=== PATIENT | female | born 1935 | race Caucasian/White ===

== ENCOUNTER 2022-04-07 12:34 | Inpatient (IN) | payer MEDICARE, MEDICAID, SELFPAY ==
[2022-04-07] VITALS (7 sets, daily range): BP systolic 81–148; BP diastolic 60–80; PULSE 79–137; RESP 16–23; TEMP 36.6–36.9; O2SAT 95–99; BMI 26.1
--- NOTE | ~2022-04-07 | XR_ITS ---
EXAMINATION: XR CHEST CLINICAL INFORMATION: Chest pain COMPARISON: None TECHNIQUE: 2 views of the chest were obtained. FINDINGS: Coarse interstitial prominence. No focal consolidation or mass. No pleural effusion or pneumothorax. Calcified aortic arch. Normal heart size. Sternal wires and mediastinal vascular clips are present. Surgical sutures left lateral to the aortic arch. Degenerative changes of the shoulders and spine. There is kyphoplasty cement or recurrent disc spacer in the mid thoracic spine. XR/XR chest 2V IMPRESSION: Coarse interstitial prominence, nonspecific. Most commonly this is associated with chronic bronchitis or reactive airways disease. Acute bronchitis or pulmonary edema considered less likely.
--- NOTE | ~2022-04-07 | XR_ITS ---
EXAMINATION: LUMBAR SPINE, SACRUM AND COCCYX CLINICAL INFORMATION: Pain following fall COMPARISON: None TECHNIQUE: Lumbar spine 3 views, sacrum and coccyx 3 views FINDINGS: There is diffuse osteopenia with multilevel degenerative changes, more prominent to the level of L3-L4 with narrowing of disc space, L4-L5 and L5-S1 with narrowing of the disc space and vacuum phenomenon. There is no compression deformities seen. There is dextroscoliosis of lumbar spine. Evaluation of sacrum and coccyx revealed no fractures. Sacroiliac joints are preserved. Soft tissues are normal. XR/XR lumbar spine 2-3V IMPRESSION: Diffuse osteopenia and degenerative changes
--- NOTE | ~2022-04-07 | XR_ITS ---
EXAMINATION: XR ABDOMEN KUB CLINICAL INDICATION: Assess if barium passed from stomach status post upper GI series. COMPARISON: CT scan of the abdomen and pelvis dated 04/07/2022, upper GI series dated 04/09/2022. TECHNIQUE: AP view of the abdomen. XR/XR KUB FINDINGS/IMPRESSION: Persistent contrast is seen within the the hiatal hernia and gastric lumen as well as in the small bowel. Most of the contrasted thousand and the distal ileum and proximal colon to the level of the proximal one third of the transverse colon. No significantly dilated loops of small bowel. Mild gas and stool within the colon distally to the rectum.
--- NOTE | ~2022-04-07 | XR_ITS ---
EXAMINATION: LUMBAR SPINE, SACRUM AND COCCYX CLINICAL INFORMATION: Pain following fall COMPARISON: None TECHNIQUE: Lumbar spine 3 views, sacrum and coccyx 3 views FINDINGS: There is diffuse osteopenia with multilevel degenerative changes, more prominent to the level of L3-L4 with narrowing of disc space, L4-L5 and L5-S1 with narrowing of the disc space and vacuum phenomenon. There is no compression deformities seen. There is dextroscoliosis of lumbar spine. Evaluation of sacrum and coccyx revealed no fractures. Sacroiliac joints are preserved. Soft tissues are normal. XR/XR sacrum coccyx min 2V IMPRESSION: Diffuse osteopenia and degenerative changes
--- NOTE | ~2022-04-07 | CT_ITS ---
EXAMINATION: CT ABDOMEN AND PELVIS WITH CONTRAST CLINICAL INFORMATION: Nausea and abdominal pain COMPARISON: None TECHNIQUE: Multidetector volumetric images were obtained from the superior aspect of the liver through the pubic symphysis following administration 85 mL of Omnipaque 350 intravenous contrast. Sagittal and coronal reformatted images were obtained on the technologist's workstation. Oral contrast: No This CT examination was performed using dose optimization techniques as appropriate, variously including the following: *Automated exposure control *Adjustment of mA and/or kV according to patient size (this includes techniques or standardized protocols for targeted exams where dose is matched to indication/reason for exam; i.e. extremities or head) *Use of iterative reconstruction technique DLP: 471 mGy-cm FINDINGS: LUNG BASES: Moderate sized hiatal hernia is partially visualized. Emphysematous changes are present at the lung bases with tree-in-bud abnormality consistent with airway disease. Atelectasis is seen. Some calcified granulomas are present. LIVER, GALLBLADDER, AND BILIARY TREE: The liver is normal in size, shape, and attenuation. Multiple scattered small hepatic cysts are seen the largest measuring about a centimeter in size (for example 3:13 and 9). There is a hyperenhancing liver mass seen at the tip of the right lobe of the liver measuring 1 cm in size (3:32). This appears to represent a portosystemic shunt (see 6:117) No suspicious solid focal hepatic lesion or biliary ductal dilatation is present. The gallbladder is unremarkable with no evidence of radiopaque gallstones, gallbladder wall thickening, or obvious pericholecystic inflammatory changes. PANCREAS: There is fatty infiltration of the pancreas. SPLEEN: Unremarkable. ADRENAL GLANDS: Unremarkable. KIDNEYS AND URETERS: The kidneys are normal in size, shape, and attenuation. A benign Bosniak class I cyst present in the lower pole of the left kidney with some other smaller cortical hypodensities also statistically cysts. These need no further imaging or follow-up. No solid renal masses. No hydronephrosis, hydroureter, or calculi seen. No perinephric stranding. BLADDER: Unremarkable. GASTROINTESTINAL TRACT: There is an area of circumferential thickening of the gastric antrum. Although this could be due to a contraction or underfilling, malignancy cannot be entirely excluded. Upper endoscopy or an upper GI is recommended for further evaluation. There is colonic diverticulosis without diverticulitis. Small bowel is unremarkable. The appendix is is not visualized. ABDOMINAL WALL: No significant hernia is appreciated. LYMPH NODES: No retroperitoneal lymphadenopathy is seen. VASCULAR: Calcific atherosclerotic changes present in the aorta and iliofemoral vessels without aneurysm. PELVIC VISCERA: Unremarkable. OSSEOUS STRUCTURES: Marked degenerative changes are present in the spine from L3 through S1. CT/CT abdomen pelvis w IV con IMPRESSION: 1. An area of circumferential thickening of the gastric antrum is present. Although this could be due to a contraction or underfilling, malignancy cannot be entirely excluded. Upper endoscopy or upper GI is recommended for further evaluation. 2. Incidental note made of emphysema, hepatic cysts, a portosystemic shunt, fatty infiltration of the pancreas, colonic diverticulosis without diverticulitis and degenerative changes in the spine. Fleischner guidelines were followed.
--- NOTE | ~2022-04-07 | FL_ITS ---
EXAMINATION: XR GI SERIES CLINICAL INFORMATION: Abnormal CT COMPARISON: CT CT 04/07/2022 TECHNIQUE: Multiple fluoroscopic spot images were obtained as the patient swallowed thick and thin barium in semiupright position. Due to pain, the patient was not able to fully cooperate with positioning for the typical images of an upper GI series. FINDINGS: Due to pain, the patient was not able to fully cooperate with positioning. The study was abbreviated. The patient initiated swallowing normally. There is abnormal primary peristalsis with extensive tertiary contractions. Moderate hiatal hernia is present. The visualized gastric mucosa is normal in appearance though evaluation is limited by the single contrast technique. Contrast had not emptied the stomach by the time the study was terminated, limiting evaluation of the gastric antrum and duodenal bulb. FLUOROSCOPY TIME: 1.7 minutes DOSE AREA PRODUCT: 14.080 Gy-cm2 (solorio-centimeter squared) FL/FL upper GI series IMPRESSION: Limited study due to difficulty with patient positioning. The study was abbreviated. Single contrast technique was utilized. Contrast had not exited the stomach to allow for evaluation of the gastric antrum or duodenal bulb when the study was terminated. Abnormal primary esophageal peristalsis with extensive tertiary contractions. Moderate-sized hiatal hernia. Evaluation of the gastric mucosa is limited by single contrast technique but no gross abnormality seen. GIVEN THE LIMITED STUDY, RECOMMEND UPPER ENDOSCOPY FOR FURTHER EVALUATION OR A REPEAT STUDY COULD BE OBTAINED WHEN THE PATIENT'S ACUTE CLINICAL ISSUES HAVE RESOLVED.
--- NOTE | 2022-04-07 13:25 | ECG_ITS ---
Test Reason : CHEST PAIN Blood Pressure : / mmHG Vent. Rate : 127 BPM Atrial Rate : 000 BPM P-R Int : 000 ms QRS Dur : 086 ms QT Int : 314 ms P-R-T Axes : 000 039 225 degrees QTc Int : 456 ms Atrial fibrillation with rapid ventricular response ST & T wave abnormality, consider inferior ischemia ST & T wave abnormality, consider anterolateral ischemia Abnormal ECG No previous ECGs available Referred By: Yadira Nj Electronically Signed By:STEVE ALLISON MD
--- NOTE | 2022-04-07 13:34 | PC.NURSE ---
pt's states that she slide out of her chair and held herself up with jorgito hands, denies hitting head/loc.
[2022-04-07 14:40] LABS: MANUAL DIFF FLAG NO
[2022-04-07 14:43] LABS: Basophils Percent Auto 0.6 % (0-2); Eosinophils Absolute Auto 0.1 X10*3/uL (0.0-0.4); Eosinophils Percent Auto 1.3 % (0-4); Hematocrit 30.7 % (37.0-47.0); Hemoglobin 9.1 g/dl (12.0-16.0); Imm Gran Abs Auto 0.02 X10*3/uL (0.00-0.03); Imm Gran Pct Auto 0.3 % (0.0-0.4); Lymphocytes Percent Auto 14.3 % (20-40); Mean Corpuscular HGB Conc 29.6 g/dl (31.0-35.0); Mean Platelet Volume 9.5 fL (9.4-12.3); Monocytes Absolute Auto 0.5 X10*3/uL (0.1-1.2); Monocytes Percent Auto 6.8 % (2-11); Neutrophils Absolute Auto 5.5 x10*3/uL (2.0-8.3); Neutrophils Percent Auto 76.7 % (45-73); Platelet Count 240 X10*3/uL (160-400); Red Blood Count 3.79 X10*6/uL (4.20-5.50); Red Cell Distribution Width 19.2 % (11.0-16.0); White Blood Count 7.2 X10*3/uL (4.8-10.8)
[2022-04-07] MEDS: Digoxin 0.5 MG/2 ML AMPUL 0.25 MG IVPUSH ×2 (14:43→17:57)
[2022-04-07 14:50] LABS: INTERNATIONAL NORM RATIO 1.2 (0.9-1.1); Prothrombin Time 14.1 SEC (10.0-13.1)
[2022-04-07] MEDS: Calcium Gluconate/NaCl,Iso-Osm 2 GM/100 ML PLAST..BAG IV (14:56)
--- NOTE | 2022-04-07 15:07 | PC.NURSE ---
opal matamoros ([facility], [facility], ) called and was updated.
[2022-04-07 15:10] LABS: Alanine Aminotransferase 9 U/L (0-31); Alkaline Phosphatase 85 U/L (39-117); Anion Gap 18 (12-20); Aspartate Amino Transferase 12 U/L (5-31); B Type Natriuretic Peptide 979 pg/mL (<100); Bilirubin Total 0.4 mg/dL (0.0-1.0); Blood Urea Nitrogen 16 mg/dL (9-16); Calcium 9.4 mg/dL (8.4-10.2); Carbon Dioxide 22 mmol/L (22-29); Chloride 100 mmol/L (96-108); Estimated Glomerular Filt Rate 48; Glucose Random 115 mg/dL (60-115); Magnesium 1.6 mg/dL (1.6-2.6); Potassium 4.4 mmol/L (3.3-5.1); Sodium 136 mmol/L (135-145); Total Protein 6.3 g/dL (6.5-8.0); Troponin-I High Sensitivity 9.1 ng/L (<3.5-17.0)
--- NOTE | 2022-04-07 15:23 | ED.CHESTPAIN ---
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 She also reports that she was in her wheelchair yesterday and she slid out of her wheelchair landing on her coccyx bone and since then she has been having lower back/coccyx pain. She also has nausea and lower abdominal pain she believes she might have some constipation. She denies head injury loss of consciousness. She did receive 18.5 mg of Cardizem by IV push by EMS and given 324 mg of aspirin. The Cardizem did drop the patient's blood pressure. Patient denies any dizziness, headaches, neck pain/stiffness, trouble swallowing or breathing, shortness of breath, dyspnea on exertion, orthopnea, palpitations, paresthesias, dysuria, hematuria, abnormal vaginal discharge, weakness, focal weakness, rashes, lower extremity edema or calf tenderness or any other symptoms complaints or concerns at this time. MD complaint: chest pain Pertinent past history: coronary artery disease and other (See above) Onset (ago): day(s) (2-3 days ) Timing of current episode: constant Onset: other (Patient unsure) Pain location: other (Diffusely) Severity: mild Quality: tightness Relieving factors: nothing Exacerbating factors: nothing Associated symptoms: nausea Treatment prior to arrival: aspirin and other (18.5mg of Cardizem) Risk Factors Coronary artery disease risk factors: hypertension Related Data Allergies Allergy/AdvReac Type Severity Reaction Status Date / Time No Known Allergies Allergy Verified 04/07/22 13:25 Review of Systems Review of Systems: Constitutional : No Weight loss, No Fever, No Chills, No Night Sweats, No Fatigue, No Malaise ENT/Mouth : No Hearing loss, No Ear Pain, No Nasal Congestion, No Sinus Pain, No Hoarseness, No sore throat, No Rhinorrhea, No Swallowing Difficulty Eyes: No Eye Pain, No Swelling, No Redness, No Foreign Body, No Discharge, No Vision Changes Cardiovascular : + Chest Pain, No SOB, No Dyspnea on Exertion, No Orthopnea, No Edema, No Palpitations Respiratory : No Cough, No Sputum, No Wheezing, No Smoke Exposure, No Dyspnea Gastrointestinal : + Nausea, + abdominal pain, No Vomiting, No Diarrhea, No Constipation, No Hematochezia, No Melena Genitourinary : no irregular bleeding, No Dysuria, No Urinary Frequency, No Hematuria, No Urinary Incontinence, No Urgency, No Flank Pain, No Urinary Flow Changes, No Hesitancy Musculoskeletal : + Back pain, +Coccyx bone pain, No additional joint pain, No Myalgias, No Joint Swelling Skin : No Skin Lesions, No rash Neuro : + left arm Numbness sensation, No Weakness, No Loss of Consciousness, No Dizziness, No Headache Psych : No Anxiety/Panic, No Depression, No SI/HI/AH/VH, No Social Issues, Heme/Lymph: No Bruising, No Bleeding,No Lymphadenopathy Endocrine : No Polyuria, No Polydipsia, No Temperature Intolerance Yes all other systems are reviewed and are negative [facility] Past Medical History Attestation statement: The following information was validated with the patient. Source: old records reviewed and nursing notes reviewed Social History Social History Alcohol intake: never Patient Tobacco Use Status: Never used Tobacco Use of substances other than those prescribed or required for medical reasons: No Advance Directives: Yes Advance Directives Information Provided: No Advance Directives on File: No Physical Exam Vital Signs: Vital Signs: Last Vital Signs Temp 98.4 F 04/07/22 18:02 Pulse 137 H 04/07/22 18:02 Resp 17 04/07/22 18:02 BP 132/71 04/07/22 18:02 Pulse Ox 98 04/07/22 18:02 O2 Del Method 04/07/22 18:02 O2 Flow Rate 2 04/07/22 18:02 BMI result Body Mass Index 26.1 vital signs have been reviewed as normal and appeared to be correct. Blood pressure 94/60. Heart rate 104. Respiration rate normal. Temperature normal. Oxygen saturation normal. Appearance: Alert. Oriented X3. No acute distress. Head: Normal external exam. Normocephalic. Atraumatic. Eyes: PERRLA. EOMI. Conjunctiva and sclera normal. Eyelids normal. ENT: Pharynx normal. Uvula midline. Moist mucous membranes. No lesions/ulcerations or masses noted on the tongue. Normal voice. No trismus noted. No drooling noted. No muffled voice noted. Neck: Normal inspection. Neck supple. FROM. No adenopathy. Thyroid Normal. No meningeal signs. CVS: Normal heart rate and rhythm. Heart sound normal. Pulses normal throughout. No murmurs/rales/gallops. Respiratory: No respiratory distress. Painless inspiration. Breath sounds normal. No wheezes/rales/rhonchi noted. Chest nontender. No accessory muscle usage noted or decreased air movement noted. Abdomen: Soft and mild TTp to lower quadrants. Nondistended. No guarding. No rigidity. Bowel sounds normal in all 4 quadrants. No distention noted. No organomegaly noted. No visible injury noted. No rebound tenderness. Negative Rovsing sign. Negative obturator's sign. Negative psoas sign. Negative Benoit sign. Back: No CVA tenderness. Full range of motion noted. Patient mild tenderness palpation to coccyx bone otherwise no mid lumbar tenderness step-offs or deformities noted. No signs of trauma. Patient neuro intact bilaterally and distally on all 4 extremities. Patient's reflexes intact bilaterally and distally on all 4 extremities. No rashes/lesion/induration/fluctuance or signs of infection noted. Skin: Skin warm and dry. Normal skin color. Normal skin turgor. No rashes/lesions/lacerations noted. Extremities: No lower extremity edema. No calf tenderness is noted. Extremities exhibit normal range of motion and nontender. Neuro: Oriented X 3. No motor deficit. No sensory deficit. Reflexes normal. Normal steady gait. No focal neuro deficits noted. CN's II-XII intact bilaterally? Vascular: + radial pulses/+ 2 distal pedal pulses/+2 dorsalis pedis b/l. Normal cap refill. No cyanosis noted to upper extremity nails and lower extremity toes nails. 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 She also reports that she was in her wheelchair yesterday and she slid out of her wheelchair landing on her coccyx bone and since then she has been having lower back/coccyx pain. She also has nausea and lower abdominal pain she believes she might have some constipation. She denies head injury loss of consciousness. She did receive 18.5 mg of Cardizem by IV push by EMS and given 324 mg of aspirin. The Cardizem did drop the patient's blood pressure. Plan: Labs, EKG, chest x-ray, lumbar spine x-ray, scrotal x-ray, CT scan abdomen pelvis IV contrast, COVID swab and re-evaluate. Reevaluation(s) Reevaluation #1: - labs reviewed patient with anemia with an H&H of 9.1/30.7 - troponin 9.1. - BNP 979 - otherwise all other labs are within normal limits. - chest x-ray revealed coarse assisted show prominence, nonspecific. Most commonly this is associated with chronic bronchitis and reactive airway disease. Acute bronchitis or pulmonary edema considered less likely. - EKG is atrial fibrillation with RVR with ventricular rate of [address] abnormalities no acute ischemic change are noted. Unsure if the atrial fibrillation is new or old. - therefore I discussed this case with Dr. Alyx Mariano and due to patient's low blood pressure and tachycardia will give 0.25 mg of digoxin. Provide 2 g of calcium gluconate and re-evaluate. Time: 14:00 Reevaluation #2: - patient's blood pressure has improved after the calcium gluconate and digoxin. - therefore discussing this case with Dr. Gaitan who recommended possible cardioversion if this is new onset AFib although patient is reporting now that she is unsure if this is new onset of AFib and reports that she was recently at [facility] therefore will attempt to get records. - therefore Dr. Gaitan the sub acute care nurse recommended starting the patient on Cardizem 2.5 mg an hour and increase slowly and to give another digoxin dose in a few hours. - still awaiting CT scan abdomen pelvis with IV contrast, repeat troponin will re-evaluate. Time: 16:13 Reevaluation #3: - blood pressure has in improved now 124/66. Therefore will give another dose of digoxin 0.25 mg and re-evaluate. We will plan to admit. - Dr. Valladares to admit at this time he recommended doing a med rec and a TSH level therefore added at this time. Time: 18:01 [facility] - Chest Pain Medical Records Data Attestation: I reviewed the patient's medical records. Lab Data Attestation: I reviewed the patient's lab results. Result diagrams: 04/07/22 14:36 04/07/22 14:36 Labs: Lab Results 04/07/22 04/07/22 04/07/22 Range/Units 14:36 14:36 14:36 WBC 7.2 (4.8-10.8) X10*3/uL RBC 3.79 L (4.20-5.50) X10*6/uL Hgb 9.1 L (12.0-16.0) g/dl Hct 30.7 L (37.0-47.0) % MCV 81.0 (80.0-98.0) fL MCH 24.0 L (27.0-33.0) pg MCHC 29.6 L (31.0-35.0) g/dl RDW 19.2 H (11.0-16.0) % Plt Count 240 (160-400) X10*3/uL MPV 9.5 (9.4-12.3) fL Immature Gran % (Auto) 0.3 (0.0-0.4) % Neut % (Auto) 76.7 H (45-73) % Lymph % (Auto) 14.3 L (20-40) % Lanier % (Auto) 6.8 (2-11) % Eos % (Auto) 1.3 (0-4) % Baso % (Auto) 0.6 (0-2) % Lymph # (Auto) 1.0 L (1.2-4.9) X10*3/uL Lanier # (Auto) 0.5 (0.1-1.2) X10*3/uL Eos # (Auto) 0.1 (0.0-0.4) X10*3/uL Baso # (Auto) 0.0 (0.0-0.2) X10*3/uL Abs Immat Gran (auto) 0.02 (0.00-0.03) X10*3/uL Absolute Neuts (auto) 5.5 (2.0-8.3) x10*3/uL Absolute Nucleated RBC 0.000 (0.0-0.012) X10*3/uL Nucleated RBC % (auto) 0.0 (0.0-0.2) /100WBC PT 14.1 H (10.0-13.1) SEC INR 1.2 H (0.9-1.1) Sodium 136 (135-145) mmol/L Potassium 4.4 (3.3-5.1) mmol/L Chloride 100 (96-108) mmol/L Carbon Dioxide 22 (22-29) mmol/L Anion Gap 18 (12-20) BUN 16 (9-16) mg/dL Creatinine 1.09 (0.5-1.4) mg/dL Estim Creat Clear Calc 32.0 Estimated GFR 48 Random Glucose 115 (60-115) mg/dL Calcium 9.4 (8.4-10.2) mg/dL Magnesium 1.6 (1.6-2.6) mg/dL Total Bilirubin 0.4 (0.0-1.0) mg/dL AST 12 (5-31) U/L ALT 9 (0-31) U/L Alkaline Phosphatase 85 (39-117) U/L Total Creatine Kinase 51 (26-140) U/L Troponin I High Sens (<3.5-17.0) ng/L B-Natriuretic Peptide (<100) pg/mL Total Protein 6.3 L (6.5-8.0) g/dL Albumin 4.0 (3.5-5.0) g/dL COVID-19 ([place]) (Negative) COVID-19 Clin Com 04/07/22 04/07/22 04/07/22 Range/Units 14:36 17:07 17:07 WBC (4.8-10.8) X10*3/uL RBC (4.20-5.50) X10*6/uL Hgb (12.0-16.0) g/dl Hct (37.0-47.0) % MCV (80.0-98.0) fL MCH (27.0-33.0) pg MCHC (31.0-35.0) g/dl RDW (11.0-16.0) % Plt Count (160-400) X10*3/uL MPV (9.4-12.3) fL Immature Gran % (Auto) (0.0-0.4) % Neut % (Auto) (45-73) % Lymph % (Auto) (20-40) % Lanier % (Auto) (2-11) % Eos % (Auto) (0-4) % Baso % (Auto) (0-2) % Lymph # (Auto) (1.2-4.9) X10*3/uL Lanier # (Auto) (0.1-1.2) X10*3/uL Eos # (Auto) (0.0-0.4) X10*3/uL Baso # (Auto) (0.0-0.2) X10*3/uL Abs Immat Gran (auto) (0.00-0.03) X10*3/uL Absolute Neuts (auto) (2.0-8.3) x10*3/uL Absolute Nucleated RBC (0.0-0.012) X10*3/uL Nucleated RBC % (auto) (0.0-0.2) /100WBC PT (10.0-13.1) SEC INR (0.9-1.1) Sodium (135-145) mmol/L Potassium (3.3-5.1) mmol/L Chloride (96-108) mmol/L Carbon Dioxide (22-29) mmol/L Anion Gap (12-20) BUN (9-16) mg/dL Creatinine (0.5-1.4) mg/dL Estim Creat Clear Calc Estimated GFR Random Glucose (60-115) mg/dL Calcium (8.4-10.2) mg/dL Magnesium (1.6-2.6) mg/dL Total Bilirubin (0.0-1.0) mg/dL AST (5-31) U/L ALT (0-31) U/L Alkaline Phosphatase (39-117) U/L Total Creatine Kinase (26-140) U/L Troponin I High Sens 9.1 9.1 (<3.5-17.0) ng/L B-Natriuretic Peptide 979 H (<100) pg/mL Total Protein (6.5-8.0) g/dL Albumin (3.5-5.0) g/dL COVID-19 ([place]) Negative (Negative) COVID-19 Clin Com See Note Imaging Data Chest x-ray: Attestation: I personally reviewed and interpreted this imaging study as follows: Radiologist's impression: FINDINGS: Coarse interstitial prominence. No focal consolidation or mass. No pleural effusion or pneumothorax. Calcified aortic arch. Normal heart size. Sternal wires and mediastinal vascular clips are present. Surgical sutures left lateral to the aortic arch. Degenerative changes of the shoulders and spine. There is kyphoplasty cement or recurrent disc spacer in the mid thoracic spine. XR/XR chest 2V IMPRESSION: Coarse interstitial prominence, nonspecific. Most commonly this is associated with chronic bronchitis or reactive airways disease. Acute bronchitis or pulmonary edema considered less likely. Lumbar/coccyx x-ray: Attestation: I personally reviewed and interpreted this imaging study as follows: Radiologist's impression: FINDINGS: There is diffuse osteopenia with multilevel degenerative changes, more prominent to the level of L3-L4 with narrowing of disc space, L4-L5 and L5-S1 with narrowing of the disc space and vacuum phenomenon. There is no compression deformities seen. There is dextroscoliosis of lumbar spine. Evaluation of sacrum and coccyx revealed no fractures. Sacroiliac joints are preserved. Soft tissues are normal. ? XR/XR lumbar spine 2-3V IMPRESSION: Diffuse osteopenia and degenerative changes? FINDINGS: There is diffuse osteopenia with multilevel degenerative changes, more prominent to the level of L3-L4 with narrowing of disc space, L4-L5 and L5-S1 with narrowing of the disc space and vacuum phenomenon. There is no compression deformities seen. There is dextroscoliosis of lumbar spine. Evaluation of sacrum and coccyx revealed no fractures. Sacroiliac joints are preserved. Soft tissues are normal. ? XR/XR sacrum coccyx min 2V IMPRESSION: Diffuse osteopenia and degenerative changes? ECG Data ECG #1: Attestation: I personally reviewed and interpreted this ECG as follows: ECG interpretation date: 04/07/22 ECG interpretation time: 13:28 Interpretation: EKG is atrial fibrillation with RVR with ventricular rate of [address] abnormalities no acute ischemic change are noted. Unsure if the atrial fibrillation is new or old. Critical Care Time Critical Care Time Critical Care Time: Yes Total Critical Care Time: 60 Attestation: I personally attest to this time spent taking care of the patient Discharge Plan Discharge Clinical Impression: Atrial fibrillation with rapid ventricular response, Anemia, Fall, Acute hypotension, CHF (congestive heart failure), Pain in the coccyx Patient Disposition: Admitted As Inpatient
[2022-04-07] MEDS: iohexoL 350 MG/ML 100 ML INFUS..BTL IV (16:48)
[2022-04-07 17:30] LABS: COVID-19 Test Negative (Negative); IDNOW Serial# 16C4AD1C
[2022-04-07 17:34] LABS: Troponin-I High Sensitivity 9.1 ng/L (<3.5-17.0)
--- NOTE | 2022-04-07 18:01 | PC.NURSE ---
Pt able to void in bed adorno.
[2022-04-07] MEDS: LORazepam 1 MG TABLET PO (18:32)
[2022-04-07 18:58] LABS: TSH reflex Free T4 1.32 uIU/mL (0.32-4.0)
--- NOTE | 2022-04-07 21:03 | PM.IMHP ---
History of Present Illness Date of Service: 04/07/22 Chief Complaint: Chest palpitations This is a 86-year-old female, resident of [facility], with pertinent history of mood disorder, hypothyroidism, essential hypertension, chronic hypoxemic respiratory failure due to COPD, CAD status post bypass, congestive heart failure (unknown ejection fraction) who was brought to the emergency department for evaluation of palpitations and chest tightness. Patient does have multiple complaints at the time of admission. States she has been having palpitations and chest tightness that started on the day of presentation. She was evaluated by a healthcare provider at the [place] [facility] who sent her to the ER. Patient does not know if she has history of atrial arrhythmia. Patient also complains of low back pain since yesterday. She was in her wheelchair when she slid out of her wheelchair and landed on her coccyx bone and it has been hurting since. On review of systems, she complains of epigastric discomfort, nausea and difficulty with passing stools. Does not remember the last time she had a bowel movement. Patient denies fever, chills, vomiting, chest discomfort, changes in urinary habits, breathing difficulty. 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 In the emergency department, patient was given IV digoxin and initiated on diltiazem drip. Review of Systems Review of Systems: All 13 review of systems are negative except as noted in [facility] Medical History CAD (coronary artery disease) CHF (congestive heart failure) Chronic respiratory failure with hypoxia CVA (cerebral vascular accident) GERD (gastroesophageal reflux disease) Hypertension Hypothyroidism Insomnia Mood disorder Surgical History (Updated 04/07/22 @ 21:11 by Maryanne Nath MD) Hx of CABG Social History Alcohol intake: never Patient Tobacco Use Status: Never used Tobacco Use of substances other than those prescribed or required for medical reasons: No Advance Directives: Yes Advance Directives Information Provided: No Advance Directives on File: No Meds Allergies Allergy/AdvReac Type Severity Reaction Status Date / Time No Known Allergies Allergy Verified 04/07/22 13:25 Active Medications: Current Medications Acetaminophen (Acetaminophen 325 Mg Tablet) 650 mg PO Q6H PRN PRN Reason: Pain, Mild (Pain Scale 1-3) Albuterol Sulfate (Albuterol Sulfate 90 Mcg 8 Gm Inhaler) 2 puff INHALE Q6H PRN PRN Reason: Shortness Of Breath Albuterol/Ipratropium (Albuterol/Iprat 2.5/0.5mg 3 Ml Ampul.Neb) 3 ml INHALE Q6H PRN PRN Reason: Shortness Of Breath Apixaban (Apixaban 5 Mg Tablet) 5 mg PO BID [facility] Calcitonin [place] (Calcitonin,[place],Synth Nasal 3.7 Ml Bottle) 1 spray NOSTRILALT DAILY [facility] Diltiazem HCl (Diltiazem Hcl 30 Mg Tablet) 30 mg PO Q6H [facility]; Protocol Escitalopram Oxalate (Escitalopram Oxalate 20 Mg Tablet) 20 mg PO DAILY [facility] Famotidine (Famotidine 20 Mg Tablet) 20 mg PO ONCE ONE Stop: 04/07/22 20:54 Furosemide (Furosemide 20 Mg Tablet) 20 mg PO DAILY [facility]; Protocol Diltiazem HCl 2.5 mg/ Sodium (Chloride) 125 mls @ 0 mls/hr IVCONT .Q0M [facility]; Protocol Last Admin: 04/07/22 17:12 Dose: 2.5 mg/hr, 125 mls/hr Isosorbide Mononitrate (Isosorbide Mononitrate 30 Mg Tab.Er.24h) 30 mg PO DAILY [facility]; Protocol Levothyroxine Sodium (Levothyroxine Sodium 125 Mcg Tablet) 125 mcg PO DAILY [facility] Lorazepam (Lorazepam 0.5 Mg Tablet) 0.5 mg PO BID PRN PRN Reason: anxiety Melatonin (Melatonin 3 Mg Tablet) 6 mg PO BEDTIME PRN PRN Reason: Insomnia Non-Formulary Medication (Fluticasone Propion-Salmeterol [Advair Hfa]) 2 puff INHALE BID [facility] Non-Formulary Medication (Oxycodone [Oxycontin]) 1 tab PO BID [facility] Omeprazole (Omeprazole 40 Mg Capsule.Dr) 40 mg PO DAILY [facility] Ondansetron HCl (Ondansetron Hcl 4 Mg/2 Ml Vial) 4 mg IVPUSH Q8H PRN PRN Reason: Nausea and Vomiting Oxycodone HCl (Oxycodone Hcl Immed Release 5 Mg Tablet) 5 mg PO QID PRN PRN Reason: Pain, Moderate Pantoprazole Sodium (Pantoprazole Sodium 40 Mg/10 Ml Vial) 40 mg IVPUSH DAILY [facility] Pharmacy Consult (Consult Rx Perform Med Rec) 1 each MISCELLANE ONCE STA Stop: 04/07/22 19:36 Senna (Senna [place] Extract Oral Syrup 15 Ml Syrup) 7.5 ml PO BEDTIME [facility] Sodium Chloride (0.9 % Sodium Chloride Flush 3 Ml Syringe) 3 ml IVFLUSH QSHIFT [facility] Trazodone HCl (Trazodone Hcl 100 Mg Tablet) 200 mg PO BEDTIME PRN PRN Reason: Sleep Home Medications Medication Instructions Recorded Confirmed Last Taken Type albuterol sulfate 90 mcg/actuation 2 puff inhalation Q6H PRN 04/07/22 04/07/22 Unknown History aerosol inhaler Shortness Of Breath amlodipine 2.5 mg tablet 1 tab PO DAILY 04/07/22 04/07/22 Unknown History apixaban 5 mg tablet (Eliquis) 5 mg PO BID 04/07/22 04/07/22 Unknown History aspirin 81 mg chewable tablet 81 mg PO DAILY 04/07/22 04/07/22 Unknown History benzonatate 100 mg capsule 100 mg PO TID PRN Cough 04/07/22 04/07/22 Unknown History calcitonin (salmon) 200 1 spray intranasal (ALT) DAILY 04/07/22 04/07/22 Unknown History unit/actuation nasal spray calcium carbonate 600 mg-vitamin 1 tab PO DAILY 04/07/22 04/07/22 Unknown History D3 10 mcg (400 unit) tablet (Calcium 600 + D(3)) carboxymethylcellulose sodium 0.5 1 drp ophthalmic (eye) TID PRN Dry 04/07/22 04/07/22 Unknown History % eye drops (Refresh Tears) Eye(S) cetirizine 5 mg tablet 5 mg PO DAILY 04/07/22 04/07/22 Unknown History diclofenac sodium 1 % topical gel 2 g topical BID 04/07/22 04/07/22 Unknown History escitalopram oxalate 20 mg tablet 20 mg PO DAILY 04/07/22 04/07/22 Unknown History ferrous sulfate 325 mg (65 mg 325 mg PO DAILY 04/07/22 04/07/22 Unknown History iron) tablet fluticasone propionate 230 2 puff inhalation BID 04/07/22 04/07/22 Unknown History mcg-salmeterol 21 mcg/actuation HFA inhaler (Advair HFA) fluticasone propionate 50 1 spray intranasal DAILY PRN 04/07/22 04/07/22 Unknown History mcg/actuation nasal Allergy Symptoms spray,suspension furosemide 20 mg tablet 1 tab PO DAILY 04/07/22 04/07/22 Unknown History guaifenesin 100 mg/5 mL oral liquid 200 mg PO Q4H PRN Cough 04/07/22 04/07/22 Unknown History ipratropium 0.5 mg-albuterol 3 mg 3 ml inhalation Q6H PRN Shortness 04/07/22 04/07/22 Unknown History (2.5 mg base)/3 mL nebulization Of Breath soln isosorbide mononitrate 30 mg 30 mg PO DAILY 04/07/22 04/07/22 Unknown History tablet,extended release 24 hr ketorolac 0.4 % eye drops 1 drp ophthalmic (eye) TID PRN 04/07/22 04/07/22 Unknown History Allergy Symptoms levothyroxine 125 mcg tablet 1 tab PO DAILY 04/07/22 04/07/22 Unknown History lidocaine 4 % topical patch 1 patch topical DAILY PRN Pain 04/07/22 04/07/22 Unknown History lorazepam 0.5 mg tablet 1 tab PO DAILY PRN anxiety 04/07/22 04/07/22 Unknown History metoprolol succinate 25 mg 75 mg PO DAILY 04/07/22 04/07/22 Unknown History tablet,extended release 24 hr omeprazole 40 mg capsule,delayed 1 cap PO DAILY 04/07/22 04/07/22 Unknown History release ondansetron 4 mg disintegrating 4 mg PO Q8H PRN Nausea And Vomiting 04/07/22 04/07/22 Unknown History tablet oxycodone 15 mg tablet,crush 15 mg PO BEDTIME 04/07/22 04/07/22 Unknown History resistant,extended release 12 hr (OxyContin) oxycodone 5 mg tablet 1 tab PO QID PRN Pain, Moderate 04/07/22 04/07/22 Unknown History sennosides 8.6 mg tablet (senna) 17.2 mg PO BID 04/07/22 04/07/22 Unknown History trazodone 100 mg tablet 2 tab PO BEDTIME PRN Sleep 04/07/22 04/07/22 Unknown History Physical Exam Vital Signs and Narrative: Vital Signs: Last Vital Signs Temp 98.4 F 04/07/22 18:02 Pulse 137 H 04/07/22 18:02 Resp 17 04/07/22 18:02 BP 132/71 04/07/22 18:02 Pulse Ox 98 04/07/22 18:02 O2 Del Method 04/07/22 18:02 O2 Flow Rate 2 04/07/22 18:02 BMI result Body Mass Index 26.1 Elderly female lying in bed in no distress Neck supple, no JVD Irregularly irregular, S1-S2 heard Decreased breath sound at bases Abdomen soft nontender, no guarding, no rigidity Patient is awake, alert and oriented to place, time and person, no focal motor weakness Psych: Normal mood No pedal edema Results Labs CBC and Chem 7: 04/07/22 14:36 04/07/22 14:36 Labs: Laboratory Results - last 24 hr 04/07/22 04/07/22 04/07/22 14:36 14:36 14:36 MCV 81.0 MCH 24.0 L MCHC 29.6 L RDW 19.2 H Plt Count 240 MPV 9.5 Immature Gran % (Auto) 0.3 Neut % (Auto) 76.7 H Lymph % (Auto) 14.3 L [place] % (Auto) 6.8 Eos % (Auto) 1.3 Baso % (Auto) 0.6 Lymph # (Auto) 1.0 L [place] # (Auto) 0.5 Eos # (Auto) 0.1 Baso # (Auto) 0.0 Abs Immat Gran (auto) 0.02 Absolute Neuts (auto) 5.5 Absolute Nucleated RBC 0.000 Nucleated RBC % (auto) 0.0 PT 14.1 H INR 1.2 H Anion Gap 18 Estim Creat Clear Calc 32.0 Estimated GFR 48 Random Glucose 115 Calcium 9.4 Magnesium 1.6 Total Bilirubin 0.4 AST 12 ALT 9 Alkaline Phosphatase 85 Total Creatine Kinase 51 Troponin I High Sens B-Natriuretic Peptide Total Protein 6.3 L Albumin 4.0 TSH 1.32 COVID-19 ([place]) COVID-19 Clin Com 04/07/22 04/07/22 04/07/22 14:36 17:07 17:07 MCV MCH MCHC RDW Plt Count MPV Immature Gran % (Auto) Neut % (Auto) Lymph % (Auto) [place] % (Auto) Eos % (Auto) Baso % (Auto) Lymph # (Auto) [place] # (Auto) Eos # (Auto) Baso # (Auto) Abs Immat Gran (auto) Absolute Neuts (auto) Absolute Nucleated RBC Nucleated RBC % (auto) PT INR Anion Gap Estim Creat Clear Calc Estimated GFR Random Glucose Calcium Magnesium Total Bilirubin AST ALT Alkaline Phosphatase Total Creatine Kinase Troponin I High Sens 9.1 9.1 B-Natriuretic Peptide 979 H Total Protein Albumin TSH COVID-19 ([place]) Negative COVID-19 Clin Com See Note Imaging Radiologist's Impressions: Impressions Chest X-Ray 04/07/22 13:55 IMPRESSION: Coarse interstitial prominence, nonspecific. Most commonly this is associated with chronic bronchitis or reactive airways disease. Acute bronchitis or pulmonary edema considered less likely. Lumbar Spine X-Ray 04/07/22 16:37 IMPRESSION: Diffuse osteopenia and degenerative changes Sacrum and Coccyx X-Ray 04/07/22 16:37 IMPRESSION: Diffuse osteopenia and degenerative changes Abdomen/Pelvis CT 04/07/22 16:52 IMPRESSION: 1. An area of circumferential thickening of the gastric antrum is present. Although this could be due to a contraction or underfilling, malignancy cannot be entirely excluded. Upper endoscopy or upper GI is recommended for further evaluation. 2. Incidental note made of emphysema, hepatic cysts, a portosystemic shunt, fatty infiltration of the pancreas, colonic diverticulosis without diverticulitis and degenerative changes in the spine. Fleischner guidelines were followed. Assessment and Plan (1) Atrial fibrillation with rapid ventricular response: Status: Acute (2) CHF (congestive heart failure): Status: Acute (3) Hypertension: Status: Acute (4) COPD (chronic obstructive pulmonary disease): Status: Acute (5) Chronic respiratory failure with hypoxia: Status: Acute (6) Mood disorder: Status: Acute (7) Hypothyroidism: Status: Acute (8) Insomnia: Status: Acute (9) GERD (gastroesophageal reflux disease): Status: Acute (10) Pain in the coccyx: Status: Acute Plan This is a 86-year-old female, resident of [facility], with pertinent history of mood disorder, hypothyroidism, essential hypertension, chronic hypoxemic respiratory failure due to COPD, CAD status post bypass, congestive heart failure (unknown ejection fraction) who was brought to the emergency department for evaluation of palpitations and chest tightness. #. AFib with RVR -will admit patient to telemetry. Currently on diltiazem IV drip. Initiating p.o. diltiazem. Patient is on Eliquis 5 mg b.i.d. Also obtaining transthoracic echocardiogram and cardiology consult. TSH pending #. Imaging concern for gastric antrum malignancy -patient does have symptoms of nausea, constipation and abdominal discomfort. Initiating IV PPI. Will keep NPO after midnight for possible upper endoscopy. GI consult. #. Congestive heart failure, unknown ejection fraction -currently compensated. BNP elevated, likely baseline as elderly female. On furosemide and isosorbide mononitrate. Obtaining echocardiogram as above #. Essential hypertension -on isosorbide mononitrate, Lasix and initiating diltiazem. Hold amlodipine for now #. Chronic hypoxemic respiratory failure due to COPD -no concern for exacerbation at the time of admission. DuoNebs p.r.n.. Continue home inhalers. On 2 L home oxygen as needed at baseline #. Hypothyroidism -on levothyroxine. TSH pending #. Pain in coccyx -after mechanical fall. Consulting Physical therapy to evaluate and treat. Analgesics p.r.n. #. Mood disorder #. Insomnia -continue home p.o. medications #. Chronic microcytic anemia -obtaining iron panel DVT prophylaxis: Eliquis 5 mg b.i.d. Diet: Cardiac diet. NPO after midnight Full code Patient will require two night minimum hospital stay for management of AFib with a RVR, currently on diltiazem drip. Also needs evaluation for possible gastric antrum mass Quality Stroke Does the patient have a stroke diagnosis?: No VTE Prior VTE?: No VTE Risk Level:: Medical - moderate - high VTE Device Contraindication: Treatment Not Indicated VTE Drug Contraindication: N/A - Med Ordered
--- NOTE | 2022-04-07 21:08 | PHA.MEDREC ---
Pharmacy Consult ? Medication Reconciliation Pharmacy has completed the medication reconciliation. Ángel Ardon at [facility] orders summary report
[2022-04-07 21:25] LABS: Iron 79 mcg/dL (30-160); Percent Iron Saturation 25 % (15-50); Total Iron Binding Capacity 314 mcg/dL (228-428); Unsaturated Iron Binding 235 ug/dL
[2022-04-07] MEDS: Pantoprazole Sodium 40 MG/10 ML VIAL IVPUSH (22:22)
[2022-04-07] MEDS: dilTIAZem HCL 30 MG TABLET PO (22:22)
[2022-04-07] MEDS: Apixaban 5 MG TABLET PO (22:22)
[2022-04-07] MEDS: oxyCODONE HCl Immed Release 5 MG TABLET PO (22:22)
[2022-04-07] MEDS: Famotidine 20 MG TABLET PO (22:22)
[2022-04-07] MEDS: traZODone HCL 100 MG TABLET 200 MG PO (22:24)
[2022-04-08] VITALS (8 sets, daily range): BP systolic 116–139; BP diastolic 49–72; PULSE 68–86; RESP 15–18; TEMP 36.6–36.8; O2SAT 96–99
--- NOTE | 2022-04-08 01:17 | PC.NURSE ---
Pt sleeping in no apparent distress. Breaths are even and unlabored with equal chest rises. RR 15 bpm. On 2L nc. HR 68. Pt on Diltiazem 125mg running at 2.5ml/hr. Will continue to monitor.
[2022-04-08] MEDS: dilTIAZem HCL 30 MG TABLET PO ×3 (05:02→16:25)
[2022-04-08] MEDS: Acetaminophen 325 MG TABLET 650 MG PO ×2 (05:02→11:01)
[2022-04-08] MEDS: Levothyroxine Sodium 125 MCG TABLET PO (06:12)
[2022-04-08 06:30] LABS: MANUAL DIFF FLAG NO
[2022-04-08 06:32] LABS: Basophils Absolute Auto 0.1 X10*3/uL (0.0-0.2); Basophils Percent Auto 0.8 % (0-2); Eosinophils Absolute Auto 0.2 X10*3/uL (0.0-0.4); Eosinophils Percent Auto 3.9 % (0-4); Hematocrit 31.3 % (37.0-47.0); Hemoglobin 9.3 g/dl (12.0-16.0); Imm Gran Abs Auto 0.01 X10*3/uL (0.00-0.03); Imm Gran Pct Auto 0.2 % (0.0-0.4); Lymphocytes Absolute Auto 1.3 X10*3/uL (1.2-4.9); Lymphocytes Percent Auto 21.9 % (20-40); Mean Corpuscular HGB Conc 29.7 g/dl (31.0-35.0); Mean Corpuscular Hemoglobin 24.1 pg (27.0-33.0); Mean Corpuscular Volume 81.1 fL (80.0-98.0); Mean Platelet Volume 9.4 fL (9.4-12.3); Monocytes Absolute Auto 0.7 X10*3/uL (0.1-1.2); Monocytes Percent Auto 11.9 % (2-11); Neutrophils Absolute Auto 3.7 x10*3/uL (2.0-8.3); Neutrophils Percent Auto 61.3 % (45-73); Platelet Count 229 X10*3/uL (160-400); Red Blood Count 3.86 X10*6/uL (4.20-5.50); Red Cell Distribution Width 19.2 % (11.0-16.0)
[2022-04-08 06:51] LABS: Anion Gap 15 (12-20); Blood Urea Nitrogen 15 mg/dL (9-16); Calcium 9.6 mg/dL (8.4-10.2); Carbon Dioxide 26 mmol/L (22-29); Chloride 101 mmol/L (96-108); Creatinine Clr Calc Pharmacy 31.1; Estimated Glomerular Filt Rate 46; Glucose Random 105 mg/dL (60-115); Potassium 4.4 mmol/L (3.3-5.1); Sodium 138 mmol/L (135-145)
--- NOTE | 2022-04-08 07:00 | CA_ITS ---
Transthoracic Echocardiogram Patient (Last, First, Middle): Leonela Pelaez, Gender: Female Date of : 1935 Age: 86 Procedure Date: 04/08/2022 Procedure Type: Transthoracic Echocardiogram Location: ER Height: 154.94 cm Weight: 62.6 kg BSA: 1.61 m2 Heart Rate: bpm BP: 116 / 49 mmHg Trench Pipe Layer Helper: Referring MD: Maryanne Nath MD Compressor Assembler: Skip Gaitan MD Symptoms: afib Study Quality: Fair ECG Rhythm: Atrial Fibrillation Conclusions: - 1. Normal LV systolic function with mild LVH with restrictive filling pattern 2. Mildly dilated left atrium 3. Cardiac valvular Doppler within normal limits 4. Normal RV systolic pressure 5. No gross pericardial effusion Findings Left Ventricle Normal left ventricular size and systolic function. There is mildly increased left ventricular wall thickness. The visually estimated ejection fraction is between 60-65%. Spectral Doppler is indicative of a restrictive filling pattern. Right Ventricle Normal right ventricular cavity size and systolic function. Atria The left atrium is mildly dilated. There is lipomatous hypertrophy of the interatrial septum. There is no evidence of interatrial shunt. The right atrium is likely dilated. Aortic Valve Normal aortic valve structure and function. There is no aortic valve stenosis. There is no aortic valve regurgitation. Mitral Valve Normal mitral valve structure and function. There is trace mitral valve regurgitation. There is no mitral valve stenosis. Pulmonic Valve The pulmonic valve was not well visualized. Tricuspid Valve Normal tricuspid valve structure. There is mild tricuspid valve regurgitation. The right ventricular systolic pressure is normal. The right ventricular systolic pressure is 26 mmHg. Normal right atrial pressure. There is no evidence of pulmonary hypertension. Great Vessels All visible segments of the aorta are normal in size. The pulmonary artery was not well visualized. Moderate plaque is seen in the ascending aorta. Venous The inferior vena cava is normal in size and collapses greater than 50% with inspiration. Pericardium/Pleural There is no evidence of pericardial effusion. Prior Study Comparison No prior study available for comparison. Measurements 2D Linear Measurements IVSd: 1.12 0.6-0.9/0.6-1.0 cm LVIDd: 3.84 3.9-5.3/4.2-5.9 cm LVIDd Index: 2.39 2.4-3.2/2.2-3.1 cm/m2 LVIDs: 2.61 2.0-3.6 cm LVPWd: 1.08 0.7-1.1 cm Ao Root: 2.90 2.1-3.5 cm LA Diam: 3.90 2.7-3.8/3.0-4.0 cm LAIDs Index: 2.42 1.5-2.3 cm/m2 LV Mass: 170.27 67-162/88-224 g LV Mass Index: 105.76 43-95/49-115 g/m2 LVOT Diam: 1.90 3.0+(-)1.3 cm Mitral Valve MV Pk E: 1.23 MV Decel Time: 127.00 E'Lateral: 7.94 E'Medial: 6.74 E/E' Med: 18.20 E/E' Lat: 15.50 PHT: 37.00 MVA PHT: 5.95 Decel Tripp: 9.63 Aortic Valve AoV Pk Pedro: 1.29 AoV Mn Pedro: 0.86 AoV VTI: 0.34 AoV Pk Grad: 7.00 Aov Mn Grad: 4.00 LISSETTE Cont.VTI: 1.61 LVOT LVOT Pk Pedro: 0.92 LVOT Mn Pedro: 0.54 LVOT VTI: 0.19 LVOT Pk Grad: 3.00 LVOT Mn Grad: 2.00 LVOT Diam: 1.90 LVOT Area: 2.84 Diastolic Function MV Pk E: 1.23 E'Medial: 6.74 E/E' Med: 18.20 E' Laterial: 7.94 E/E' Lat: 15.50 Right Ventricle TAPSE (mm): 18.80 TVS' Pedro: 8.70 Tricuspid Valve TR Pk Pedro: 2.39 TR Pk Grad: 23.00 RA Press: 3.00 RVSP: 26.00 Great Vessels Aorta Ao Root-2D: 2.90 2.0-3.7 cm Ao Asc: 2.90 2.1-3.4 cm Pulmonary Valve PV Pk Pedro: 1.00 Peak PV Grad: 4.00 Updated in Other Vendor System with Status of Final Skip Gaitan MD electronically signed on 04/08/2022 11:40:11 AM with status of Final
[2022-04-08] MEDS: Furosemide 20 MG TABLET PO (09:05)
[2022-04-08] MEDS: Apixaban 5 MG TABLET PO ×2 (09:05→21:37)
[2022-04-08] MEDS: Isosorbide Mononitrate 30 MG TAB.ER.24H PO (09:06)
[2022-04-08] MEDS: Escitalopram Oxalate 20 MG TABLET PO (09:06)
[2022-04-08] MEDS: Pantoprazole Sodium 40 MG/10 ML VIAL IVPUSH (09:07)
--- NOTE | 2022-04-08 09:12 | PC.NURSE ---
DILTIAZEM GTT D/C HR HAS REMAINED UNDER 90 FOR SEVERAL HRS. PO MEDICATIONS GIVEN
--- NOTE | 2022-04-08 09:23 | MHC.CM.PN ---
ANJEL COUGHLINMARCUSJerardo LIVES AT [facility] [place]RETURN REFERRAL SENT. USES A WALKER AND A NEBULIZER. STATES HER SON BOBY IS HER HCP, UNSURE IF HE HAS A COPY. WILL REQUEST HE BRING ONE IN. ROS ROA X 2. PCP DR. IRIZARRY AT THE [facility]. DP: TO RETURN TO [facility] [place], BLS WILL TRANSPORT.
--- NOTE | 2022-04-08 09:24 | PC.NURSE ---
DR MANDEL AT THE BEDSIDE FOR CARDIOLOGY CONSULT
--- NOTE | 2022-04-08 09:26 | PM.CNCAR ---
History of Present Illness History of Present Illness Date of Service: 04/08/22 Requesting physician: Maryanne Nath Consult reason: chest pain and atrial fibrillation Chief complaint: CHEST PRESSURE TO BACK,HR 90-130 FROM SNF PER EMS Narrative: I was consulted to see Leonela in cardiology consultation today for symptoms of chest discomfort and atrial fibrillation. Patient is a poor historian, resident of a nursing home facility with significant past medical history including history of CAD status post coronary artery bypass grafting [facility] and [facility] with cardiac catheterization done 2 years ago at [facility] which had shown severe [place] three-vessel coronary artery disease with occluded graft to the diagonal branch with a patent MARIA ISABEL to RCA as well as PEREZ to LAD. At the time the treatment was decided to be medical. She also has history of atrial fibrillation reported in the past records as paroxysmal atrial fibrillation however she is not very sure about whether she has now persistent atrial fibrillation versus paroxysmal atrial fibrillation. She has history of hypertension, CVA, chronic respiratory failure on chronic oxygen therapy for COPD, history of congestive heart failure she is on diuretic regimen. She is residing at nursing home facility is active but says over the last few years activity levels have declined and she is requiring oxygen now. She is at the nursing home facility as she could not take care of herself at home. She is developing some gradual weakness in the lower extremities. However she ambulates there. Two days ago she says she was not feeling well, not able to better describe this says she was feeling anxious and then subsequently started noticing increased shortness of breath and chest pressure. She was therefore referred to the emergency room from nursing home facility yesterday. She was noted to have atrial fibrillation rapid ventricular response yesterday and EMS had given her 18.75 mg of Cardizem IV push. She subsequently developed hypotension with systolic blood pressure in the 80s. There was therefore concern about her overall condition. However subsequently after giving her IV fluids and calcium gluconate her blood pressure improved. She was given couple of dose of did yesterday was started on low-dose Cardizem drip at 2.5 mg an hour. Since then her rate has remained controlled. She is currently chest pain-free. Her troponins are flat and normal at 9.1. Her BNP was noted at 979 without any obvious signs of heart failure. EKG showed yesterday atrial fibrillation with diffuse ST T wave depression which could represent myocardial ischemia or hypertensive changes. Currently she denies any symptoms. A blood pressure is systolic 119 with heart rate in the 60s and 70s in atrial fibrillation with controlled rate Review of Systems Constitutional: Constitutional: Reports no additional constitutional complaints Eyes: Eyes: Reports no additional eye complaints Cardiovascular: Cardiovascular: Reports chest pain, Denies syncope, Denies lightheadedness, Denies Loss of Consciousness, Reports palpitations and Reports dyspnea on exertion Respiratory: Respiratory: Reports no additional respiratory complaints and Reports dyspnea on exertion Gastrointestinal: Gastrointestinal: Reports no additional gastrointestinal complaints Genitourinary: Genitourinary: Reports no additional female genitourinary complaints Musculoskeletal: Musculoskeletal: Reports no additional musculoskeletal complaints Integumentary/Breasts: Skin/Breast: Reports system reviewed and no additional complaints, except as docu Neurologic: Reports system reviewed and no additional complaints, except as documented and Denies syncope Psychiatric: Psychiatric: Reports no additional psychiatric complaints Endocrine: Endocrine: Reports no additional endocrine complaints and Reports palpitations Hematologic/Lymphatic: Hematologic/Lymphatic: Reports no additional hematologic/lymphatic complaints [facility] Past Medical History Medical History CAD (coronary artery disease) CHF (congestive heart failure) Chronic respiratory failure with hypoxia CVA (cerebral vascular accident) GERD (gastroesophageal reflux disease) Hypertension Hypothyroidism Insomnia Mood disorder Surgical History Surgical History Hx of CABG Social History Social History Alcohol intake: never Patient Tobacco Use Status: Never used Tobacco Use of substances other than those prescribed or required for medical reasons: No Advance Directives: Yes Advance Directives Information Provided: No Advance Directives on File: No service: No Current occupational status: retired Meds Allergies Allergy/AdvReac Type Severity Reaction Status Date / Time No Known Allergies Allergy Verified 04/07/22 13:25 Active Medications: Current Medications Acetaminophen (Acetaminophen 325 Mg Tablet) 650 mg PO Q6H PRN PRN Reason: Pain, Mild (Pain Scale 1-3) Last Admin: 04/08/22 05:02 Dose: 650 mg Albuterol Sulfate (Albuterol Sulfate 90 Mcg 8 Gm Inhaler) 2 puff INHALE Q6H PRN PRN Reason: Shortness Of Breath Albuterol/Ipratropium (Albuterol/Iprat 2.5/0.5mg 3 Ml Ampul.Neb) 3 ml INHALE RQ6H PRN PRN Reason: Shortness Of Breath Apixaban (Apixaban 5 Mg Tablet) 5 mg PO BID [facility] Last Admin: 04/08/22 09:05 Dose: 5 mg Calcitonin [place] (Calcitonin,[place],Synth Nasal 3.7 Ml Bottle) 1 spray NOSTRILALT DAILY [facility] Diltiazem HCl (Diltiazem Hcl 30 Mg Tablet) 30 mg PO Q6H [facility]; Protocol Last Admin: 04/08/22 09:06 Dose: 30 mg Escitalopram Oxalate (Escitalopram Oxalate 20 Mg Tablet) 20 mg PO DAILY [facility] Last Admin: 04/08/22 09:06 Dose: 20 mg Fluticasone/Vilanterol (Fluticasone/Vilanterol 200/25 Blst.W.Dev) 1 puff INHALE DAILY [facility] Last Admin: 04/08/22 08:34 Dose: Not Given Furosemide (Furosemide 20 Mg Tablet) 20 mg PO DAILY [facility]; Protocol Last Admin: 04/08/22 09:05 Dose: 20 mg Diltiazem HCl 2.5 mg/ Sodium (Chloride) 125 mls @ 0 mls/hr IVCONT .Q0M [facility]; Protocol Last Titration: 04/08/22 09:10 Dose: Infused Isosorbide Mononitrate (Isosorbide Mononitrate 30 Mg Tab.Er.24h) 30 mg PO DAILY [facility]; Protocol Last Admin: 04/08/22 09:06 Dose: 30 mg Levothyroxine Sodium (Levothyroxine Sodium 125 Mcg Tablet) 125 mcg PO DAILY@0600 [facility] Last Admin: 04/08/22 06:12 Dose: 125 mcg Lorazepam (Lorazepam 0.5 Mg Tablet) 0.5 mg PO BID PRN PRN Reason: anxiety Melatonin (Melatonin 3 Mg Tablet) 6 mg PO BEDTIME PRN PRN Reason: Insomnia Ondansetron HCl (Ondansetron Hcl 4 Mg/2 Ml Vial) 4 mg IVPUSH Q8H PRN PRN Reason: Nausea and Vomiting Oxycodone HCl (Oxycodone Hcl Immed Release 5 Mg Tablet) 5 mg PO QID PRN PRN Reason: Pain, Moderate Last Admin: 04/07/22 22:22 Dose: 5 mg Oxycodone HCl (Oxycodone Hcl Er 10 Mg Tab.Er.12h) 10 mg PO BID PRN PRN Reason: severe pain Pantoprazole Sodium (Pantoprazole Sodium 40 Mg/10 Ml Vial) 40 mg IVPUSH DAILY [facility] Last Admin: 04/08/22 09:07 Dose: 40 mg Senna (Senna [place] Extract Oral Syrup 15 Ml Syrup) 7.5 ml PO BEDTIME [facility] Last Admin: 04/07/22 22:21 Dose: 7.5 ml Sodium Chloride (0.9 % Sodium Chloride Flush 3 Ml Syringe) 3 ml IVFLUSH QSHIFT [facility] Last Admin: 04/08/22 09:07 Dose: Not Given Trazodone HCl (Trazodone Hcl 100 Mg Tablet) 200 mg PO BEDTIME PRN PRN Reason: Sleep Last Admin: 04/07/22 22:24 Dose: 200 mg Home Medications Medication Instructions Recorded Confirmed Last Taken Type albuterol sulfate 90 mcg/actuation 2 puff inhalation Q6H PRN 04/07/22 04/07/22 Unknown History aerosol inhaler Shortness Of Breath amlodipine 2.5 mg tablet 1 tab PO DAILY 04/07/22 04/07/22 Unknown History apixaban 5 mg tablet (Eliquis) 5 mg PO BID 04/07/22 04/07/22 Unknown History aspirin 81 mg chewable tablet 81 mg PO DAILY 04/07/22 04/07/22 Unknown History benzonatate 100 mg capsule 100 mg PO TID PRN Cough 04/07/22 04/07/22 Unknown History calcitonin (salmon) 200 1 spray intranasal (ALT) DAILY 04/07/22 04/07/22 Unknown History unit/actuation nasal spray calcium carbonate 600 mg-vitamin 1 tab PO DAILY 04/07/22 04/07/22 Unknown History D3 10 mcg (400 unit) tablet (Calcium 600 + D(3)) carboxymethylcellulose sodium 0.5 1 drp ophthalmic (eye) TID PRN Dry 04/07/22 04/07/22 Unknown History % eye drops (Refresh Tears) Eye(S) cetirizine 5 mg tablet 5 mg PO DAILY 04/07/22 04/07/22 Unknown History diclofenac sodium 1 % topical gel 2 g topical BID 04/07/22 04/07/22 Unknown History escitalopram oxalate 20 mg tablet 20 mg PO DAILY 04/07/22 04/07/22 Unknown History ferrous sulfate 325 mg (65 mg 325 mg PO DAILY 04/07/22 04/07/22 Unknown History iron) tablet fluticasone propionate 230 2 puff inhalation BID 04/07/22 04/07/22 Unknown History mcg-salmeterol 21 mcg/actuation HFA inhaler (Advair HFA) fluticasone propionate 50 1 spray intranasal DAILY PRN 04/07/22 04/07/22 Unknown History mcg/actuation nasal Allergy Symptoms spray,suspension furosemide 20 mg tablet 1 tab PO DAILY 04/07/22 04/07/22 Unknown History guaifenesin 100 mg/5 mL oral liquid 200 mg PO Q4H PRN Cough 04/07/22 04/07/22 Unknown History ipratropium 0.5 mg-albuterol 3 mg 3 ml inhalation Q6H PRN Shortness 04/07/22 04/07/22 Unknown History (2.5 mg base)/3 mL nebulization Of Breath soln isosorbide mononitrate 30 mg 30 mg PO DAILY 04/07/22 04/07/22 Unknown History tablet,extended release 24 hr ketorolac 0.4 % eye drops 1 drp ophthalmic (eye) TID PRN 04/07/22 04/07/22 Unknown History Allergy Symptoms levothyroxine 125 mcg tablet 1 tab PO DAILY 04/07/22 04/07/22 Unknown History lidocaine 4 % topical patch 1 patch topical DAILY PRN Pain 04/07/22 04/07/22 Unknown History lorazepam 0.5 mg tablet 1 tab PO DAILY PRN anxiety 04/07/22 04/07/22 Unknown History metoprolol succinate 25 mg 75 mg PO DAILY 04/07/22 04/07/22 Unknown History tablet,extended release 24 hr omeprazole 40 mg capsule,delayed 1 cap PO DAILY 04/07/22 04/07/22 Unknown History release ondansetron 4 mg disintegrating 4 mg PO Q8H PRN Nausea And Vomiting 04/07/22 04/07/22 Unknown History tablet oxycodone 15 mg tablet,crush 15 mg PO BEDTIME 04/07/22 04/07/22 Unknown History resistant,extended release 12 hr (OxyContin) oxycodone 5 mg tablet 1 tab PO QID PRN Pain, Moderate 04/07/22 04/07/22 Unknown History sennosides 8.6 mg tablet (senna) 17.2 mg PO BID 04/07/22 04/07/22 Unknown History trazodone 100 mg tablet 2 tab PO BEDTIME PRN Sleep 04/07/22 04/07/22 Unknown History Physical Exam Vital Signs: Vital Signs: Last Vital Signs Temp 98.0 F 04/08/22 07:06 Pulse 70 04/08/22 08:49 Resp 15 04/08/22 07:06 BP 118/59 L 04/08/22 08:49 Pulse Ox 98 04/08/22 08:49 O2 Del Method 04/08/22 07:06 O2 Flow Rate 2 04/08/22 07:06 BMI result Body Mass Index 26.1 Const: General: cooperative, comfortable, no acute distress, alert and awake Nutritional Appearance: average body habitus Orientation/consciousness: patient oriented x3 HEENT: Head: Yes normocephalic and Yes atraumatic Neck: Neck: Yes trachea midline, Yes supple and Yes no JVD Resp: Effort & Inspection: normal respiratory effort Auscultation: clear to auscultation bilaterally Cardio: Jugular venous distension: no JVD Rate: regular rate Rhythm: abnormal rhythm irregularly irregular Heart sounds: S1 normal heart sound present, S2 normal heart sound present, no click, no gallops, no murmurs and no rubs GI: Auscultation: normal bowel sounds Skin: General skin exam: no rashes or lesions noted Neuro: General: patient oriented x3 and no focal motor deficits Extrem: General: Yes no clubbing, cyanosis or edema Psych: Appearance: grossly normal Affect: Anxious affect present Objective Labs and Meds Result diagrams: 04/08/22 05:40 04/08/22 05:40 Lab results: Laboratory Results - last 24 hr 04/07/22 04/07/22 04/07/22 14:36 14:36 14:36 WBC 7.2 RBC 3.79 L Hgb 9.1 L Hct 30.7 L MCV 81.0 MCH 24.0 L MCHC 29.6 L RDW 19.2 H Plt Count 240 MPV 9.5 Immature Gran % (Auto) 0.3 Neut % (Auto) 76.7 H Lymph % (Auto) 14.3 L [place] % (Auto) 6.8 Eos % (Auto) 1.3 Baso % (Auto) 0.6 Lymph # (Auto) 1.0 L [place] # (Auto) 0.5 Eos # (Auto) 0.1 Baso # (Auto) 0.0 Abs Immat Gran (auto) 0.02 Absolute Neuts (auto) 5.5 Absolute Nucleated RBC 0.000 Nucleated RBC % (auto) 0.0 PT 14.1 H INR 1.2 H Sodium 136 Potassium 4.4 Chloride 100 Carbon Dioxide 22 Anion Gap 18 BUN 16 Creatinine 1.09 Estim Creat Clear Calc 32.0 Estimated GFR 48 Random Glucose 115 Calcium 9.4 Magnesium 1.6 Iron 79 TIBC 314 % Saturation 25 Unsat Iron Binding 235 Total Bilirubin 0.4 AST 12 ALT 9 Alkaline Phosphatase 85 Total Creatine Kinase 51 Troponin I High Sens B-Natriuretic Peptide Total Protein 6.3 L Albumin 4.0 TSH 1.32 COVID-19 ([place]) COVID-19 [place] 04/07/22 04/07/22 04/07/22 14:36 17:07 17:07 WBC RBC Hgb Hct MCV MCH MCHC RDW Plt Count MPV Immature Gran % (Auto) Neut % (Auto) Lymph % (Auto) [place] % (Auto) Eos % (Auto) Baso % (Auto) Lymph # (Auto) [place] # (Auto) Eos # (Auto) Baso # (Auto) Abs Immat Gran (auto) Absolute Neuts (auto) Absolute Nucleated RBC Nucleated RBC % (auto) PT INR Sodium Potassium Chloride Carbon Dioxide Anion Gap BUN Creatinine Estim Creat Clear Calc Estimated GFR Random Glucose Calcium Magnesium Iron TIBC % Saturation Unsat Iron Binding Total Bilirubin AST ALT Alkaline Phosphatase Total Creatine Kinase Troponin I High Sens 9.1 9.1 B-Natriuretic Peptide 979 H Total Protein Albumin TSH COVID-19 ([place]) Negative COVID-19 CSDN Com See Note 04/08/22 04/08/22 05:40 05:40 WBC 6.0 RBC 3.86 L Hgb 9.3 L Hct 31.3 L MCV 81.1 MCH 24.1 L MCHC 29.7 L RDW 19.2 H Plt Count 229 MPV 9.4 Immature Gran % (Auto) 0.2 Neut % (Auto) 61.3 Lymph % (Auto) 21.9 [place] % (Auto) 11.9 H Eos % (Auto) 3.9 Baso % (Auto) 0.8 Lymph # (Auto) 1.3 [place] # (Auto) 0.7 Eos # (Auto) 0.2 Baso # (Auto) 0.1 Abs Immat Gran (auto) 0.01 Absolute Neuts (auto) 3.7 Absolute Nucleated RBC 0.000 Nucleated RBC % (auto) 0.0 PT INR Sodium 138 Potassium 4.4 Chloride 101 Carbon Dioxide 26 Anion Gap 15 BUN 15 Creatinine 1.12 Estim Creat Clear Calc 31.1 Estimated GFR 46 Random Glucose 105 Calcium 9.6 Magnesium Iron TIBC % Saturation Unsat Iron Binding Total Bilirubin AST ALT Alkaline Phosphatase Total Creatine Kinase Troponin I High Sens B-Natriuretic Peptide Total Protein Albumin TSH COVID-19 ([place]) COVID-19 Clin Com Imaging Radiologist's impression: Impressions Chest X-Ray 04/07/22 13:55 IMPRESSION: Coarse interstitial prominence, nonspecific. Most commonly this is associated with chronic bronchitis or reactive airways disease. Acute bronchitis or pulmonary edema considered less likely. Lumbar Spine X-Ray 04/07/22 16:37 IMPRESSION: Diffuse osteopenia and degenerative changes Sacrum and Coccyx X-Ray 04/07/22 16:37 IMPRESSION: Diffuse osteopenia and degenerative changes Abdomen/Pelvis CT 04/07/22 16:52 IMPRESSION: 1. An area of circumferential thickening of the gastric antrum is present. Although this could be due to a contraction or underfilling, malignancy cannot be entirely excluded. Upper endoscopy or upper GI is recommended for further evaluation. 2. Incidental note made of emphysema, hepatic cysts, a portosystemic shunt, fatty infiltration of the pancreas, colonic diverticulosis without diverticulitis and degenerative changes in the spine. Fleischner guidelines were followed. Assessment and Plan (1) Angina pectoris: Status: Acute Patient with symptoms suggestive angina with underlying significant coronary artery disease with occluded diagonal graft, induced most likely due to atrial fibrillation with rapid ventricular response with demand, she also has significant LVH on echocardiogram from [facility]. Atrial fibrillation rapid ventricular response most likely due to anxiety. She has no evidence of acute coronary syndrome by flat troponins. I think simple treatment for this would be better rate control. She is not on any rate control medications at home for unclear reasons. She is easily controlled with a low-dose Cardizem drip. Would switch her to p.o. Cardizem 30 mg q.8 hours for rate control. Target rate below 80 beats per minute. Amlodipine will need to be discontinued given that she is going be started on Cardizem therapy. Continue aggressive medical therapy with good blood pressure control. She has been reported as intolerance to statin in the past and has declined other forms of treatment. Remains at high risk for cardiovascular issues although treatment would be medical. Also increase her isosorbide to 60 mg daily. She is already on full oral anticoagulation Eliquis and continue the same. (2) Atrial fibrillation with rapid ventricular response: Status: Acute Persistent atrial fibrillation unclear duration. But with rate control her symptoms are resolved at this point time. Will continue rate control strategy at this point time. Switch to p.o. Cardizem. Discontinue amlodipine therapy. Continue full oral anticoagulation, currently on Eliquis and appropriate does. Elevated BNP most likely related to LVH which is significant along with persistent atrial fibrillation. She is not having any signs or symptoms of heart failure. Continue usual diuretic therapy. Once patient is on p.o. medication well control can be discharged back to her nursing home facility. Procedures Date of Service Date of Service: 04/08/22
--- NOTE | 2022-04-08 12:14 | HO.PM.IMPN ---
Subjective Subjective Date of Service: 04/08/22 Interval History: seen and examined this AM she denies any current chest symptoms. reported that she had burning sensation prior to arrival both in chest and abdomen reports some right sided abdominal pain which is on going, but unclear if it has been evaluated Review of Systems negative except HPI Physical Exam Vital Signs: Vital Signs: Last Vital Signs Temp 98 F 04/08/22 10:54 Pulse 76 04/08/22 10:54 Resp 18 04/08/22 10:54 BP 139/66 04/08/22 10:54 Pulse Ox 96 04/08/22 10:54 O2 Del Method 04/08/22 10:54 O2 Flow Rate 2 04/08/22 10:54 BMI result Body Mass Index 26.1 Const: Other: General - no acute distress, appears comfortable Cardiovascular - IRR Lungs - normal respiratory effort, clear to auscultation bilaterally, no wheezing Abdomen - soft, nontender, no rebound or guarding Extremities - no edema bilaterally Neuro - awake and alert, no focal deficits Objective Data Active Medications Acetaminophen (Acetaminophen 325 Mg Tablet) 650 mg PO Q6H PRN PRN Reason: Pain, Mild (Pain Scale 1-3) Last Admin: 04/08/22 11:01 Dose: 650 mg Documented By: ALVARADO Albuterol Sulfate (Albuterol Sulfate 90 Mcg 8 Gm Inhaler) 2 puff INHALE Q6H PRN PRN Reason: Shortness Of Breath Albuterol/Ipratropium (Albuterol/Iprat 2.5/0.5mg 3 Ml Ampul.Neb) 3 ml INHALE RQ6H PRN PRN Reason: Shortness Of Breath Apixaban (Apixaban 5 Mg Tablet) 5 mg PO BID [facility] Last Admin: 04/08/22 09:05 Dose: 5 mg Documented By: AUGUSTO Calcitonin [place] (Calcitonin,[place],Synth Nasal 3.7 Ml Bottle) 1 spray NOSTRILALT DAILY [facility] Last Admin: 04/08/22 12:03 Dose: Not Given Documented By: ALVARADO Non-Admin Reason: Med Not Available Diltiazem HCl (Diltiazem Hcl 30 Mg Tablet) 30 mg PO Q8H [facility]; Protocol Escitalopram Oxalate (Escitalopram Oxalate 20 Mg Tablet) 20 mg PO DAILY [facility] Last Admin: 04/08/22 09:06 Dose: 20 mg Documented By: AUGUSTO Fluticasone/Vilanterol (Fluticasone/Vilanterol 200/25 Blst.W.Dev) 1 puff INHALE DAILY [facility] Last Admin: 04/08/22 08:34 Dose: Not Given Documented By: HERB Non-Admin Reason: Patient Asleep Furosemide (Furosemide 20 Mg Tablet) 20 mg PO DAILY [facility]; Protocol Last Admin: 04/08/22 09:05 Dose: 20 mg Documented By: AUGUSTO Isosorbide Mononitrate (Isosorbide Mononitrate 60 Mg Tab.Er.24h) 60 mg PO DAILY [facility]; Protocol Levothyroxine Sodium (Levothyroxine Sodium 125 Mcg Tablet) 125 mcg PO DAILY@0600 [facility] Last Admin: 04/08/22 06:12 Dose: 125 mcg Documented By: PACO Lorazepam (Lorazepam 0.5 Mg Tablet) 0.5 mg PO BID PRN PRN Reason: anxiety Melatonin (Melatonin 3 Mg Tablet) 6 mg PO BEDTIME PRN PRN Reason: Insomnia Ondansetron HCl (Ondansetron Hcl 4 Mg/2 Ml Vial) 4 mg IVPUSH Q8H PRN PRN Reason: Nausea and Vomiting Oxycodone HCl (Oxycodone Hcl Immed Release 5 Mg Tablet) 5 mg PO QID PRN PRN Reason: Pain, Moderate Last Admin: 04/07/22 22:22 Dose: 5 mg Documented By: MIGNON Oxycodone HCl (Oxycodone Hcl Er 10 Mg Tab.Er.12h) 10 mg PO BID PRN PRN Reason: severe pain Pantoprazole Sodium (Pantoprazole Sodium 40 Mg/10 Ml Vial) 40 mg IVPUSH DAILY [facility] Last Admin: 04/08/22 09:07 Dose: 40 mg Documented By: AUGUSTO Senna ([place] Extract Oral Syrup 15 Ml Syrup) 7.5 ml PO BEDTIME [facility] Last Admin: 04/07/22 22:21 Dose: 7.5 ml Documented By: MIGNON Sodium Chloride (0.9 % Sodium Chloride Flush 3 Ml Syringe) 3 ml IVFLUSH QSHIFT [facility] Last Admin: 04/08/22 09:07 Dose: Not Given Documented By: AUGUSTO Non-Admin Reason: IV Running Trazodone HCl (Trazodone Hcl 100 Mg Tablet) 200 mg PO BEDTIME PRN PRN Reason: Sleep Last Admin: 04/07/22 22:24 Dose: 200 mg Documented By: MIGNON Labs CBC & Chem 7: 04/08/22 05:40 04/08/22 05:40 Labs: Laboratory Results - last 24 hr 04/07/22 04/07/22 04/07/22 14:36 14:36 14:36 MCV 81.0 MCH 24.0 L MCHC 29.6 L RDW 19.2 H Plt Count 240 MPV 9.5 Immature Gran % (Auto) 0.3 Neut % (Auto) 76.7 H Lymph % (Auto) 14.3 L [place] % (Auto) 6.8 Eos % (Auto) 1.3 Baso % (Auto) 0.6 Lymph # (Auto) 1.0 L [place] # (Auto) 0.5 Eos # (Auto) 0.1 Baso # (Auto) 0.0 Abs Immat Gran (auto) 0.02 Absolute Neuts (auto) 5.5 Absolute Nucleated RBC 0.000 Nucleated RBC % (auto) 0.0 PT 14.1 H INR 1.2 H Anion Gap 18 Estim Creat Clear Calc 32.0 Estimated GFR 48 Random Glucose 115 Calcium 9.4 Magnesium 1.6 Iron 79 TIBC 314 % Saturation 25 Unsat Iron Binding 235 Total Bilirubin 0.4 AST 12 ALT 9 Alkaline Phosphatase 85 Total Creatine Kinase 51 Troponin I High Sens B-Natriuretic Peptide Total Protein 6.3 L Albumin 4.0 TSH 1.32 COVID-19 ([place]) COVID-19 Clin Com 04/07/22 04/07/22 04/07/22 14:36 17:07 17:07 MCV MCH MCHC RDW Plt Count MPV Immature Gran % (Auto) Neut % (Auto) Lymph % (Auto) [place] % (Auto) Eos % (Auto) Baso % (Auto) Lymph # (Auto) [place] # (Auto) Eos # (Auto) Baso # (Auto) Abs Immat Gran (auto) Absolute Neuts (auto) Absolute Nucleated RBC Nucleated RBC % (auto) PT INR Anion Gap Estim Creat Clear Calc Estimated GFR Random Glucose Calcium Magnesium Iron TIBC % Saturation Unsat Iron Binding Total Bilirubin AST ALT Alkaline Phosphatase Total Creatine Kinase Troponin I High Sens 9.1 9.1 B-Natriuretic Peptide 979 H Total Protein Albumin TSH COVID-19 ([place]) Negative COVID-19 Clin Com See Note 04/08/22 04/08/22 05:40 05:40 MCV 81.1 MCH 24.1 L MCHC 29.7 L RDW 19.2 H Plt Count 229 MPV 9.4 Immature Gran % (Auto) 0.2 Neut % (Auto) 61.3 Lymph % (Auto) 21.9 [place] % (Auto) 11.9 H Eos % (Auto) 3.9 Baso % (Auto) 0.8 Lymph # (Auto) 1.3 [place] # (Auto) 0.7 Eos # (Auto) 0.2 Baso # (Auto) 0.1 Abs Immat Gran (auto) 0.01 Absolute Neuts (auto) 3.7 Absolute Nucleated RBC 0.000 Nucleated RBC % (auto) 0.0 PT INR Anion Gap 15 Estim Creat Clear Calc 31.1 Estimated GFR 46 Random Glucose 105 Calcium 9.6 Magnesium Iron TIBC % Saturation Unsat Iron Binding Total Bilirubin AST ALT Alkaline Phosphatase Total Creatine Kinase Troponin I High Sens B-Natriuretic Peptide Total Protein Albumin TSH COVID-19 ([place]) COVID-19 Clin Com Assessment and Plan (1) Hx of CABG: Status: Acute (2) Angina pectoris: Status: Acute Plan This is an 86 yo F who presented to the ED with palpiations and chest tightness. 1. A. Fib with RVR (suspected persistent A. Fib at baseline) on IV cardizem drip, being transitioned to oral cardizem on eliquis, continue the same cardiology input appreciated renato varghese on d/c 2. Possible gastric malignancy noted on CT imaging gastroenterology consult 3. Angina/CAD in the setting of known CAD (see cardiology notes for full details); has underlying CAD s/p CABG and subsequent occluded graft imdur inreased to 60 continue other therapies 4. Chronic HFpEF not in exacerbation continue baseline diuretics 5. Mood continue her baseline meds Full Code DVT pptx, eliquis Reason for continued hospitalization: A. fib with rates uncontrolled by PO meds thus far, transitioned her to oral meds today to see how she tolerates; Furthermore, has abnormal CT imaging and requires GI consult for further eval. Quality Stroke Does the patient have a stroke diagnosis?: No VTE Prior VTE?: No VTE Risk Level:: Medical - moderate - high VTE Device Contraindication: Treatment Not Indicated VTE Drug Contraindication: N/A - Med Ordered
--- NOTE | 2022-04-08 14:22 | PC.NURSE ---
1300 Paged by Tamara Willis ([employer]) about stat urine missing. Paged Dr. Cordoba regarding missed urine and changed order to Routine, will collect once urine is provided.
[2022-04-08 15:30] LABS: Appearance Urine Clear; Color Urine Yellow; Glucose Urine UA Negative (Negative); Leukocyte Esterase Urine Negative (Negative); Nitrite Urine Negative (Negative); PH 6.5 (5.0-9.0); Specific Gravity - Urine <= 1.005 (1.005-1.025); UMIC TRIGGER UACC YES; Urine Blood Trace (Negative); Urine Ketones Negative (Negative); Urine Protein Negative (Neg-Trace)
[2022-04-08 15:35] LABS: Bacteria Urine None Seen (None Seen); Hyaline Casts Urine 0-2 /LPF (0-2); RBC Urine 0-2 /HPF (0-2); Squamous Epithelial Cell Urine 0-2 /HPF (0-2); WBC Urine 0-5 /HPF (0-5)
[2022-04-08] MEDS: 0.9 % Sodium Chloride Flush 3 ML SYRINGE IVFLUSH (16:19)
--- NOTE | 2022-04-08 16:40 | PM.EVENT ---
Event Note Date of Service: 04/08/22 Event Note: GI consult dictated. UGI series ordered for further evaluation of abnl ct.
[2022-04-08] MEDS: LORazepam 0.5 MG TABLET PO (21:37)
[2022-04-08] MEDS: oxyCODONE HCl Immed Release 5 MG TABLET PO (21:37)
[2022-04-09] VITALS (8 sets, daily range): BP systolic 98–131; BP diastolic 55–72; PULSE 68–137; RESP 16–20; TEMP 36.1–37.6; O2SAT 96–99
[2022-04-09] MEDS: dilTIAZem HCL 30 MG TABLET PO ×2 (00:38→06:05)
[2022-04-09] MEDS: 0.9 % Sodium Chloride Flush 3 ML SYRINGE IVFLUSH ×2 (00:39→08:11)
[2022-04-09] MEDS: oxyCODONE HCl ER 10 MG TAB.ER.12H PO ×2 (02:37→11:53)
--- NOTE | 2022-04-09 05:43 | CONS_ITS ---
DATE OF SERVICE: 04/08/2022 REFERRING PHYSICIAN: Dr. Cordoba REASON FOR CONSULTATION: Abnormal CT scan of the stomach. HISTORY OF PRESENT ILLNESS: Patient is a pleasant 86-year-old woman who was admitted yesterday for complaints of palpitations and chest tightness. As part of her evaluation, she underwent CAT scanning of the abdomen and pelvis, which is reviewed. This is interpreted as showing an area of circumferential thickening of the gastric antrum for which further evaluation with endoscopy or an upper GI series was recommended. The patient describes a longstanding history of gastroesophageal reflux disease. She denies a history of peptic ulcer disease. She believes she has had upper endoscopy on an upper GI series in the remote past. She is currently being treated with an intravenous proton pump inhibitor and was reportedly on omeprazole 40 mg daily at home. She does have some complaints of reflux, but denies dysphagia, hematemesis or melena. There is no family history of stomach cancer that she is aware of. PAST MEDICAL HISTORY: 1. Hypertension. 2. COPD. 3. Coronary artery disease with history of CABG. 4. Atrial fibrillation. 5. CVA. 6. Congestive heart failure. 7. Hypothyroidism. 8. Insomnia. 9. Mood disorder. CURRENT MEDICATIONS: Current medication list is reviewed in the chart. ALLERGIES: THERE ARE NONE REPORTED. FAMILY HISTORY: This is reviewed with the patient and is negative for GI malignancy. SOCIAL HISTORY: There is no current tobacco, alcohol, or substance abuse. REVIEW OF SYSTEMS: SKIN: No pruritus. HEENT: Negative. CARDIOPULMONARY: She denies shortness of breath or chest pain. GASTROINTESTINAL: As above. GENITOURINARY: Negative. NEUROPSYCHIATRIC: Negative. PHYSICAL EXAMINATION: GENERAL: Shows a pleasant female, lying comfortably in bed. VITAL SIGNS: Reviewed in the electronic medical record and are stable. SKIN: Anicteric. HEENT: Shows no scleral icterus. NECK: Without lymphadenopathy or thyromegaly. LUNGS: Clear. HEART: Shows an irregular S1, S2. No murmur. ABDOMEN: Soft without focal masses or tenderness. Bowel sounds are present. No organomegaly is noted. EXTREMITIES: Without edema. LABORATORY DATA: Review of her CT scan shows the findings as described above. PLAN: At this time, I have recommended further evaluation with upper GI series. If this is negative, then she will need endoscopic evaluation, but if it does show abnormalities, then I would recommend holding her Eliquis for 3 days prior to endoscopy. Thank you for asking me to see her. I will follow her in the hospital with you. MD ASHWINI Smyth/LISS / [phone]
[2022-04-09] MEDS: Levothyroxine Sodium 125 MCG TABLET PO (06:05)
[2022-04-09] MEDS: Isosorbide Mononitrate 60 MG TAB.ER.24H PO (08:10)
[2022-04-09] MEDS: Apixaban 5 MG TABLET PO ×2 (08:10→19:52)
[2022-04-09] MEDS: oxyCODONE HCl Immed Release 5 MG TABLET PO ×2 (08:10→20:01)
[2022-04-09] MEDS: Escitalopram Oxalate 20 MG TABLET PO (08:10)
[2022-04-09] MEDS: Pantoprazole Sodium 40 MG/10 ML VIAL IVPUSH (08:11)
[2022-04-09] MEDS: Furosemide 20 MG TABLET PO (08:11)
[2022-04-09] MEDS: Fluticasone/Vilanterol 200/25 BLST.W.DEV 1 PUFF INHALE (09:47)
[2022-04-09] MEDS: Calcitonin,Salmon,Synth Nasal 3.7 ML BOTTLE 1 SPRAY NOSTRILALT (10:46)
[2022-04-09] MEDS: Metoprolol Tartrate 25 MG TABLET PO ×2 (11:52→19:52)
[2022-04-09] MEDS: Acetaminophen 325 MG TABLET 650 MG PO (11:57)
[2022-04-09] MEDS: LORazepam 0.5 MG TABLET PO (11:57)
--- NOTE | 2022-04-09 12:55 | P.PNCA_ITS ---
Subjective Subjective Date of Service: 04/09/22 Principal diagnosis: Atrial fibrillation, angina Interval history: Patient says she went down for test today, appears to be upper GI issues. She was anxious. Heart rate is uncontrolled. Remains on control rapid ventricular response. She had developed some chest discomfort while she was having the test done. Review of Systems Constitutional: Reports no additional constitutional complaints Cardiovascular: Reports chest pain Respiratory: Reports no additional respiratory complaints Gastrointestinal: Reports no additional gastrointestinal complaints Psychiatric: Reports anxiety Physical Exam Vital Signs: Last Vital Signs Temp 97.0 F 04/09/22 11:30 Pulse 137 H 04/09/22 11:30 Resp 20 04/09/22 11:30 BP 123/72 04/09/22 11:30 Pulse Ox 98 04/09/22 11:30 O2 Del Method 04/09/22 11:30 O2 Flow Rate 2 04/09/22 11:30 BMI result Body Mass Index 26.1 Const General: cooperative, comfortable, no acute distress, alert and awake Nutritional Appearance: average body habitus Orientation/consciousness: patient oriented x3 HEENT Head: Yes normocephalic and Yes atraumatic Neck Neck: Yes trachea midline, Yes supple and Yes no JVD Resp Effort & Inspection: normal respiratory effort Auscultation: clear to auscultation bilaterally Cardio Jugular venous distension: no JVD Rate: regular rate Rhythm: abnormal rhythm irregularly irregular Heart sounds: S1 normal heart sound present, S2 normal heart sound present, no click, no gallops, no murmurs and no rubs GI Auscultation: normal bowel sounds Skin General skin exam: no rashes or lesions noted Neuro General: patient oriented x3 and no focal motor deficits Extrem General: Yes no clubbing, cyanosis or edema Psych Appearance: grossly normal Affect: Anxious affect present Objective Labs and Meds Result diagrams: 04/08/22 05:40 04/08/22 05:40 Lab results: Laboratory Results - last 24 hr 04/08/22 15:10 Urine Color Yellow Urine Appearance Clear Urine pH 6.5 Ur Specific [place] <= 1.005 Urine Protein Negative Urine Glucose (UA) Negative Urine Ketones Negative Urine Blood Trace H Urine Nitrite Negative Ur Leukocyte Esterase Negative Urine RBC 0-2 Urine WBC 0-5 Ur Squamous Epith Cells 0-2 Urine Bacteria None Seen Hyaline Casts 0-2 Imaging Radiologist's impression: Impressions Upper GI Series 04/09/22 11:21 IMPRESSION: Limited study due to difficulty with patient positioning. The study was abbreviated. Single contrast technique was utilized. Contrast had not exited the stomach to allow for evaluation of the gastric antrum or duodenal bulb when the study was terminated. Abnormal primary esophageal peristalsis with extensive tertiary contractions. Moderate-sized hiatal hernia. Evaluation of the gastric mucosa is limited by single contrast technique but no gross abnormality seen. GIVEN THE LIMITED STUDY, RECOMMEND UPPER ENDOSCOPY FOR FURTHER EVALUATION OR A REPEAT STUDY COULD BE OBTAINED WHEN THE PATIENT'S ACUTE CLINICAL ISSUES HAVE RESOLVED. Progress Note: A&P Assessment and plan (1) Angina pectoris: Status: Acute Assessment and Plan: Patient redeveloped chest discomfort rapid heart rate. Better rate control needs to be pursued. Continue isosorbide 60 mg daily. Needs to resume IV Cardizem. Control of her anxiety needs to be pursued. Continue other risk factor modification. (2) Atrial fibrillation with rapid ventricular response: Status: Acute Assessment and Plan: Atrial fibrillation controlled ventricular response due to anxiety. At this point time control anxiety. Also resume IV Cardizem at 2.5 mg an hour and furth er up titrate as needed. Switch to p.o. Cardizem once anxiety is better controlled. Currently on full oral anticoagulation with Eliquis. Continue to trend hematocrit which appears to have remained stable. Will follow up Time Spent With Patient Time: Total time spent is greater than 50% in coordination of care (as documented) at patient's floor/unit and/or counseling patient: Progress Note: Quality Stroke Does the patient have a stroke diagnosis?: No Procedures Date of Service Date of Service: 04/09/22
--- NOTE | 2022-04-09 13:41 | P.PNGI_ITS ---
Subjective Subjective Date of Service: 04/09/22 Interval History: tolerating diet no epigastric pain Critical Care Time (minutes): 0 Physical Exam Vital Signs: Vital Signs: Last Vital Signs Temp 97.0 F 04/09/22 11:30 Pulse 137 H 04/09/22 11:30 Resp 20 04/09/22 11:30 BP 123/72 04/09/22 11:30 Pulse Ox 98 04/09/22 11:30 O2 Del Method 04/09/22 11:30 O2 Flow Rate 2 04/09/22 11:30 BMI result Body Mass Index 26.1 GI: Other: abdomen is soft and nontender Objective Data Labs CBC & Chem 7: 04/08/22 05:40 04/08/22 05:40 Labs: Laboratory Results - last 24 hr 04/08/22 15:10 Urine Color Yellow Urine Appearance Clear Urine pH 6.5 Ur Specific [place] <= 1.005 Urine Protein Negative Urine Glucose (UA) Negative Urine Ketones Negative Urine Blood Trace H Urine Nitrite Negative Ur Leukocyte Esterase Negative Urine RBC 0-2 Urine WBC 0-5 Ur Squamous Epith Cells 0-2 Urine Bacteria None Seen Hyaline Casts 0-2 Procedures Date of Service Date of Service: 04/09/22 Progress Note: A&P Assessment and plan (1) Abn findings-GI tract: Status: Acute Assessment and Plan: ugi was a limited exam but shows no significant abnormality I do not recommend EGD at this time. Time Spent With Patient Time: Total time spent is greater than 50% in coordination of care (as documented) at patient's floor/unit and/or counseling patient: Quality Stroke Does the patient have a stroke diagnosis?: No VTE Prior VTE?: No VTE Risk Level:: Medical - moderate - high VTE Device Contraindication: Treatment Not Indicated VTE Drug Contraindication: N/A - Med Ordered
[2022-04-09] MEDS: dilTIAZem HCL 125 MG in 0.9 % Sodium Chloride 100 ML IVCONT (14:35)
--- NOTE | 2022-04-09 14:53 | HO.PM.IMPN ---
Subjective Subjective Date of Service: 04/09/22 Interval History: Complaining of generalized body ache, mostly at lower back, denies chest pain, no palpitations, denies nausea vomiting, no abdominal discomfort, tele monitor showed atrial fibrillation with ventricular rate in 130s, patient denies lightheadedness or dizziness, underwent for small-bowel GI series but was unable to stand and follow instructions therefore was unable to finish the test. Review of Systems Review of Systems: Yes all other systems are reviewed and are negative Physical Exam Vital Signs: Vital Signs: Last Vital Signs Temp 97.0 F 04/09/22 11:30 Pulse 137 H 04/09/22 11:30 Resp 20 04/09/22 11:30 BP 123/72 04/09/22 11:30 Pulse Ox 98 04/09/22 11:30 O2 Del Method 04/09/22 11:30 O2 Flow Rate 2 04/09/22 11:30 BMI result Body Mass Index 26.1 Const: Other: General appears uncomfortable due to back pain, in no acute distress. Neck supple no JVD. CVS irregular rate rhythm, Respiratory lungs clear to auscultation, no respiratory distress, no wheeze, no rhonchi. Gastrointestinal abdomen soft, nontender, bowel sounds audible, no guarding , no rigidity. Extremities no edema. Neuro nonfocal ,moving all 4 extremity speech clear. Skin no rash Objective Data Active Medications Acetaminophen (Acetaminophen 325 Mg Tablet) 650 mg PO Q6H PRN PRN Reason: Pain, Mild (Pain Scale 1-3) Last Admin: 04/09/22 11:57 Dose: 650 mg Documented By: NATHAN Albuterol Sulfate (Albuterol Sulfate 90 Mcg 8 Gm Inhaler) 2 puff INHALE Q6H PRN PRN Reason: Shortness Of Breath Albuterol/Ipratropium (Albuterol/Iprat 2.5/0.5mg 3 Ml Ampul.Neb) 3 ml INHALE RQ6H PRN PRN Reason: Shortness Of Breath Apixaban (Apixaban 5 Mg Tablet) 5 mg PO BID [facility] Last Admin: 04/09/22 08:10 Dose: 5 mg Documented By: NATHAN Artificial Tears (Artificial Tears 15 Ml Drops) 1 drop EYE-BOTH TID PRN PRN Reason: Dry Eyes Aspirin (Aspirin 81 Mg Tab.Chew) 81 mg PO DAILY [facility] Calcitonin [place] (Calcitonin,[place],Synth Nasal 3.7 Ml Bottle) 1 spray NOSTRILALT DAILY [facility] Last Admin: 04/09/22 10:46 Dose: 1 spray Documented By: NATHAN Escitalopram Oxalate (Escitalopram Oxalate 20 Mg Tablet) 20 mg PO DAILY [facility] Last Admin: 04/09/22 08:10 Dose: 20 mg Documented By: NATHAN Fluticasone Propionate (Fluticasone Propionate Nasal 16 Gm [place]) 1 spray NOSTRIL-B DAILY PRN PRN Reason: Allergy Symptoms Fluticasone/Vilanterol (Fluticasone/Vilanterol 200/25 Blst.W.Dev) 1 puff INHALE DAILY [facility] Last Admin: 04/09/22 09:47 Dose: 1 puff Documented By: SHARRI Furosemide (Furosemide 20 Mg Tablet) 20 mg PO DAILY [facility]; Protocol Last Admin: 04/09/22 08:11 Dose: 20 mg Documented By: NATHAN Diltiazem HCl 125 mg/ Sodium (Chloride) 125 mls @ 0 mls/hr IVCONT .Q0M [facility]; Protocol Last Admin: 04/09/22 14:35 Dose: 5 mg/hr, 5 mls/hr Documented By: NATHAN Isosorbide Mononitrate (Isosorbide Mononitrate 60 Mg Tab.Er.24h) 60 mg PO DAILY [facility]; Protocol Last Admin: 04/09/22 08:10 Dose: 60 mg Documented By: NATHAN Levothyroxine Sodium (Levothyroxine Sodium 125 Mcg Tablet) 125 mcg PO DAILY@0600 [facility] Last Admin: 04/09/22 06:05 Dose: 125 mcg Documented By: CELINE Lorazepam (Lorazepam 0.5 Mg Tablet) 0.5 mg PO BID PRN PRN Reason: anxiety Last Admin: 04/09/22 11:57 Dose: 0.5 mg Documented By: NATHAN Melatonin (Melatonin 3 Mg Tablet) 6 mg PO BEDTIME PRN PRN Reason: Insomnia Metoprolol Tartrate (Metoprolol Tartrate 25 Mg Tablet) 25 mg PO Q6H [facility]; Protocol Last Admin: 04/09/22 14:37 Dose: Not Given Documented By: NATHAN Non-Admin Reason: dose at 12. Ondansetron HCl (Ondansetron Hcl 4 Mg/2 Ml Vial) 4 mg IVPUSH Q8H PRN PRN Reason: Nausea and Vomiting Oxycodone HCl (Oxycodone Hcl Immed Release 5 Mg Tablet) 5 mg PO QID PRN PRN Reason: Pain, Moderate Last Admin: 04/09/22 08:10 Dose: 5 mg Documented By: NATHAN Oxycodone HCl (Oxycodone Hcl Er 10 Mg Tab.Er.12h) 10 mg PO BID [facility] Last Admin: 04/09/22 11:53 Dose: 10 mg Documented By: NATHAN Pantoprazole Sodium (Pantoprazole Sodium 40 Mg/10 Ml Vial) 40 mg IVPUSH DAILY [facility] Last Admin: 04/09/22 08:11 Dose: 40 mg Documented By: NATHAN Senna ([place] Extract Oral Syrup 15 Ml Syrup) 7.5 ml PO BEDTIME [facility] Last Admin: 04/08/22 21:36 Dose: 7.5 ml Documented By: CELINE Sodium Chloride (0.9 % Sodium Chloride Flush 3 Ml Syringe) 3 ml IVFLUSH QSHIFT [facility] Last Admin: 04/09/22 08:11 Dose: 3 ml Documented By: NATHAN Trazodone HCl (Trazodone Hcl 100 Mg Tablet) 200 mg PO BEDTIME PRN PRN Reason: Sleep Last Admin: 04/07/22 22:24 Dose: 200 mg Documented By: MIGNON Labs CBC & Chem 7: 04/08/22 05:40 04/08/22 05:40 Labs: Laboratory Results - last 24 hr 04/08/22 15:10 Urine Color Yellow Urine Appearance Clear Urine pH 6.5 Ur Specific [place] <= 1.005 Urine Protein Negative Urine Glucose (UA) Negative Urine Ketones Negative Urine Blood Trace H Urine Nitrite Negative Ur Leukocyte Esterase Negative Urine RBC 0-2 Urine WBC 0-5 Ur Squamous Epith Cells 0-2 Urine Bacteria None Seen Hyaline Casts 0-2 Assessment and Plan (1) Hx of CABG: Status: Acute (2) Angina pectoris: Status: Acute Plan This is an 86 yo F who presented to the ED with palpiations and chest tightness. 1. A.Fib with RVR (suspected persistent A. Fib at baseline) Initially treated with IV Marge avilezip, subsequently transitioned to oral cardizem, present patient ventricular rate sustained in high 130s Case discussed with Cardiology will place patient back on IV Cardizem drip in resume home dose of metoprolol, continue Eliquis Will DC Norvasc since dose of Isordil increased to 60 2. Possible gastric malignancy noted on CT imaging, seen by Dr. Ortiz its small-bowel GI series ordered but however patient was unable to finish this study case discussed with Radiology will obtain a KUB to see if barium passes stomach to rule out gastric outlet obstruction Will discuss Gastroenterology regarding upper endoscopy versus repeating CT abdomen Currently patient tolerating cardiac diet 3. Angina/CAD in the setting of known CAD (see cardiology notes for full details); has underlying CAD s/p CABG and subsequent occluded graft imdur inreased to 60 continue metoprolol, aspirin, patient reports intolerance to statin and has declined other forms of treatment 4. Chronic HFpEF not in exacerbation continue baseline diuretics 5. Mood continue her baseline meds Full Code DVT pptx, eliquis Reason for continued hospitalization: A. fib on IV Cardizem, need further workup for abnormal CT imaging and re-evaluation by GI Quality Stroke Does the patient have a stroke diagnosis?: No VTE Prior VTE?: No VTE Risk Level:: Medical - moderate - high VTE Device Contraindication: Treatment Not Indicated VTE Drug Contraindication: N/A - Med Ordered
--- NOTE | 2022-04-09 15:45 | PC.NURSE ---
HR 130's-160's. AFib.Patient reports no chest pain but 8/10 lower back pain. Metoprolol PO ordered and given. Oxycontin and tylenol given for pain. Ativan given for anxiety. HR improving 100-'s-130's. Provider ordered cardizem drip. Drip started at 5mg/hr. HR currently 80's-100's.
[2022-04-10] VITALS (8 sets, daily range): BP systolic 84–120; BP diastolic 53–56; PULSE 65–136; RESP 16–20; TEMP 36.1–36.6; O2SAT 95–98
[2022-04-10] MEDS: Metoprolol Tartrate 25 MG TABLET PO ×2 (02:48→07:52)
[2022-04-10] MEDS: Levothyroxine Sodium 125 MCG TABLET PO (05:07)
[2022-04-10 07:29] LABS: Hematocrit 32.6 % (37.0-47.0); Hemoglobin 9.9 g/dl (12.0-16.0); Mean Corpuscular HGB Conc 30.4 g/dl (31.0-35.0); Mean Corpuscular Volume 82.3 fL (80.0-98.0); Mean Platelet Volume 9.5 fL (9.4-12.3); Platelet Count 247 X10*3/uL (160-400); Red Blood Count 3.96 X10*6/uL (4.20-5.50); Red Cell Distribution Width 19.1 % (11.0-16.0); White Blood Count 6.7 X10*3/uL (4.8-10.8)
[2022-04-10] MEDS: Isosorbide Mononitrate 60 MG TAB.ER.24H PO (07:51)
[2022-04-10] MEDS: Apixaban 5 MG TABLET PO ×2 (07:52→20:55)
[2022-04-10] MEDS: oxyCODONE HCl ER 10 MG TAB.ER.12H PO ×2 (07:53→20:55)
[2022-04-10] MEDS: Aspirin 81 MG TAB.CHEW PO (07:53)
[2022-04-10] MEDS: Furosemide 20 MG TABLET PO (07:53)
[2022-04-10] MEDS: Pantoprazole Sodium 40 MG/10 ML VIAL IVPUSH (07:54)
[2022-04-10] MEDS: Calcitonin,Salmon,Synth Nasal 3.7 ML BOTTLE 1 SPRAY NOSTRILALT (07:54)
[2022-04-10] MEDS: 0.9 % Sodium Chloride Flush 3 ML SYRINGE IVFLUSH ×3 (07:54→20:55)
[2022-04-10] MEDS: Escitalopram Oxalate 20 MG TABLET PO (07:54)
[2022-04-10 07:55] LABS: Anion Gap 15 (12-20); Blood Urea Nitrogen 16 mg/dL (9-16); Calcium 8.8 mg/dL (8.4-10.2); Carbon Dioxide 31 mmol/L (22-29); Chloride 97 mmol/L (96-108); Creatinine Clr Calc Pharmacy 28.8; Estimated Glomerular Filt Rate 42; Glucose Random 116 mg/dL (60-115); Potassium 4.2 mmol/L (3.3-5.1); Sodium 139 mmol/L (135-145)
[2022-04-10] MEDS: Fluticasone/Vilanterol 200/25 BLST.W.DEV 1 PUFF INHALE (08:10)
[2022-04-10] MEDS: Metoprolol Succinate ER 25 MG TAB.ER.24H 75 MG PO (10:03)
--- NOTE | 2022-04-10 11:42 | PM.PNCARD ---
Subjective Subjective Date of Service: 04/10/22 Principal diagnosis: Atrial fibrillation, angina Interval history: Patient says she does not feel well. Complains of back pain and nausea and GI upset. Denies any angina or palpitations. Heart rate is better controlled. Overnight had some slow heart rate, however currently on Cardizem drip. Review of Systems Constitutional: Reports malaise and Reports weakness Eyes: Reports no additional eye complaints Cardiovascular: Reports no additional cardiovascular complaints Respiratory: Reports no additional respiratory complaints Gastrointestinal: Reports bloating and Reports nausea Reports weakness Physical Exam Vital Signs: Last Vital Signs Temp 97.0 F 04/10/22 11:33 Pulse 78 04/10/22 11:33 Resp 20 04/10/22 11:33 BP 112/54 L 04/10/22 11:33 Pulse Ox 97 04/10/22 11:33 O2 Del Method 04/10/22 11:33 O2 Flow Rate 1 04/10/22 11:33 BMI result Body Mass Index 26.1 Const General: cooperative, comfortable, no acute distress, alert and awake Nutritional Appearance: average body habitus Orientation/consciousness: patient oriented x3 HEENT Head: Yes normocephalic and Yes atraumatic Neck Neck: Yes trachea midline, Yes supple and Yes no JVD Resp Effort & Inspection: normal respiratory effort Auscultation: clear to auscultation bilaterally Cardio Jugular venous distension: no JVD Rate: regular rate Rhythm: abnormal rhythm irregularly irregular Heart sounds: S1 normal heart sound present, S2 normal heart sound present, no click, no gallops, no murmurs and no rubs GI Auscultation: normal bowel sounds Skin General skin exam: no rashes or lesions noted Neuro General: patient oriented x3 and no focal motor deficits Extrem General: Yes no clubbing, cyanosis or edema Psych Appearance: grossly normal Affect: Anxious affect present Objective Labs and Meds Result diagrams: 04/10/22 07:05 04/10/22 07:05 Lab results: Laboratory Results - last 24 hr 04/10/22 04/10/22 07:05 07:05 WBC 6.7 RBC 3.96 L Hgb 9.9 L Hct 32.6 L MCV 82.3 MCH 25.0 L MCHC 30.4 L RDW 19.1 H Plt Count 247 MPV 9.5 Absolute Nucleated RBC 0.000 Nucleated RBC % (auto) 0.0 Sodium 139 Potassium 4.2 Chloride 97 Carbon Dioxide 31 H Anion Gap 15 BUN 16 Creatinine 1.21 Estim Creat Clear Calc 28.8 Estimated GFR 42 Random Glucose 116 H Calcium 8.8 D Imaging Radiologist's impression: Impressions Upper GI Series 04/09/22 11:21 IMPRESSION: Limited study due to difficulty with patient positioning. The study was abbreviated. Single contrast technique was utilized. Contrast had not exited the stomach to allow for evaluation of the gastric antrum or duodenal bulb when the study was terminated. Abnormal primary esophageal peristalsis with extensive tertiary contractions. Moderate-sized hiatal hernia. Evaluation of the gastric mucosa is limited by single contrast technique but no gross abnormality seen. GIVEN THE LIMITED STUDY, RECOMMEND UPPER ENDOSCOPY FOR FURTHER EVALUATION OR A REPEAT STUDY COULD BE OBTAINED WHEN THE PATIENT'S ACUTE CLINICAL ISSUES HAVE RESOLVED. KUB X-Ray 04/09/22 15:35 FINDINGS/IMPRESSION: Persistent contrast is seen within the the hiatal hernia and gastric lumen as well as in the small bowel. Most of the contrasted thousand and the distal ileum and proximal colon to the level of the proximal one third of the transverse colon. No significantly dilated loops of small bowel. Mild gas and stool within the colon distally to the rectum. Progress Note: A&P Assessment and plan (1) Angina pectoris: Status: Acute Assessment and Plan: No current symptoms of angina. Continue dual antianginal therapy with metoprolol as well as isosorbide and also with Cardizem. Continue to control heart rate adequately which has helped with her anginal syndrome. Blood pressure is optimized. No further workup indicated at this point time. (2) Atrial fibrillation with rapid ventricular response: Status: Acute Assessment and Plan: Atrial fibrillation with better rate control. Can switch to metoprolol 50 mg b.i.d. and taper Cardizem drip. If rate remains difficult to control can switch to p.o. Cardizem 30 mg b.i.d. as well. Continue full oral anticoagulation. Will sign of the case at this point time. Thank you for allowing me to partake in her care Time Spent With Patient Time: Total time spent is greater than 50% in coordination of care (as documented) at patient's floor/unit and/or counseling patient: Progress Note: Quality Stroke Does the patient have a stroke diagnosis?: No Procedures Date of Service Date of Service: 04/10/22
[2022-04-10] MEDS: oxyCODONE HCl Immed Release 5 MG TABLET PO (13:12)
[2022-04-10] MEDS: LORazepam 0.5 MG TABLET PO (13:12)
--- NOTE | 2022-04-10 14:44 | HO.PM.IMPN ---
Subjective Subjective Date of Service: 04/10/22 Interval History: Feeling better this morning complaining of persistent coccyx and back discomfort, 2 bowel movements this morning, urinating well, tolerating diet no nausea, no vomiting, denies chest pain, no palpitations ventricular rate better controlled currently on IV Cardizem drip, no acute issues overnight Review of Systems Review of Systems: Yes all other systems are reviewed and are negative Physical Exam Vital Signs: Vital Signs: Last Vital Signs Temp 97.0 F 04/10/22 11:33 Pulse 78 04/10/22 11:33 Resp 20 04/10/22 11:33 BP 112/54 L 04/10/22 11:33 Pulse Ox 97 04/10/22 11:33 O2 Del Method 04/10/22 11:33 O2 Flow Rate 1 04/10/22 11:33 BMI result Body Mass Index 26.1 Const: Other: General appears un comfortable due to back pain, in no acute distress.? N mary supple no JVD. CVS? irregular ra te rhythm, Respira tory lungs clear t o auscultation, no respiratory distr ess, no wheeze, no rhonchi. Gastroin testinal abdomen s oft, nontender, abeba wel sounds audible , no guarding , no rigidity. Extremi ties no edema. Solo ro nonfocal ,movin g all 4 extremity speech clear. Skin no rash Objective Data Active Medications Acetaminophen (Acetaminophen 325 Mg Tablet) 650 mg PO Q6H PRN PRN Reason: Pain, Mild (Pain Scale 1-3) Last Admin: 04/09/22 11:57 Dose: 650 mg Documented By: NATHAN Albuterol Sulfate (Albuterol Sulfate 90 Mcg 8 Gm Inhaler) 2 puff INHALE Q6H PRN PRN Reason: Shortness Of Breath Albuterol/Ipratropium (Albuterol/Iprat 2.5/0.5mg 3 Ml Ampul.Neb) 3 ml INHALE RQ6H PRN PRN Reason: Shortness Of Breath Apixaban (Apixaban 5 Mg Tablet) 5 mg PO BID [facility] Last Admin: 04/10/22 07:52 Dose: 5 mg Documented By: CHRISTOPHER Artificial Tears (Artificial Tears 15 Ml Drops) 1 drop EYE-BOTH TID PRN PRN Reason: Dry Eyes Aspirin (Aspirin 81 Mg Tab.Chew) 81 mg PO DAILY [facility] Last Admin: 04/10/22 07:53 Dose: 81 mg Documented By: CHRISTOPHER Calcitonin [place] (Calcitonin,[place],Synth Nasal 3.7 Ml Bottle) 1 spray NOSTRILALT DAILY [facility] Last Admin: 04/10/22 07:54 Dose: 1 spray Documented By: CHRISTOPHER Escitalopram Oxalate (Escitalopram Oxalate 20 Mg Tablet) 20 mg PO DAILY [facility] Last Admin: 04/10/22 07:54 Dose: 20 mg Documented By: CHRISTOPHER Fluticasone Propionate (Fluticasone Propionate Nasal [address] [place]) 1 spray NOSTRIL-B DAILY PRN PRN Reason: Allergy Symptoms Fluticasone/Vilanterol (Fluticasone/Vilanterol 200/25 Blst.W.Dev) 1 puff INHALE DAILY [facility] Last Admin: 04/10/22 08:10 Dose: 1 puff Documented By: ARPAN Furosemide (Furosemide 20 Mg Tablet) 20 mg PO DAILY [facility]; Protocol Last Admin: 04/10/22 07:53 Dose: 20 mg Documented By: CHRISTOPHER Diltiazem HCl 125 mg/ Sodium (Chloride) 125 mls @ 0 mls/hr IVCONT .Q0M [facility]; Protocol Last Titration: 04/10/22 10:03 Dose: 2.5 mg/hr, 2.5 mls/hr Documented By: CHRISTOPHER Isosorbide Mononitrate (Isosorbide Mononitrate 60 Mg Tab.Er.24h) 60 mg PO DAILY [facility]; Protocol Last Admin: 04/10/22 07:51 Dose: 60 mg Documented By: CHRISTOPHER Levothyroxine Sodium (Levothyroxine Sodium 125 Mcg Tablet) 125 mcg PO DAILY@0600 [facility] Last Admin: 04/10/22 05:07 Dose: 125 mcg Documented By: SELVIN Lorazepam (Lorazepam 0.5 Mg Tablet) 0.5 mg PO BID PRN PRN Reason: anxiety Last Admin: 04/10/22 13:12 Dose: 0.5 mg Documented By: CHRISTOPHER Melatonin (Melatonin 3 Mg Tablet) 6 mg PO BEDTIME PRN PRN Reason: Insomnia Metoprolol Succinate (Metoprolol Succinate Er 25 Mg Tab.Er.24h) 75 mg PO DAILY [facility]; Protocol Last Admin: 04/10/22 10:03 Dose: 75 mg Documented By: CHRISTOPHER Ondansetron HCl (Ondansetron Hcl 4 Mg/2 Ml Vial) 4 mg IVPUSH Q8H PRN PRN Reason: Nausea and Vomiting Oxycodone HCl (Oxycodone Hcl Immed Release 5 Mg Tablet) 5 mg PO QID PRN PRN Reason: Pain, Moderate Last Admin: 04/10/22 13:12 Dose: 5 mg Documented By: CHRISTOPHER Oxycodone HCl (Oxycodone Hcl Er 10 Mg Tab.Er.12h) 10 mg PO BID [facility] Last Admin: 04/10/22 07:53 Dose: 10 mg Documented By: CHRISTOPHER Senna (Senna [place] Extract Oral Syrup 15 Ml Syrup) 7.5 ml PO BEDTIME [facility] Last Admin: 04/09/22 19:54 Dose: 7.5 ml Documented By: SELVIN Sodium Chloride (0.9 % Sodium Chloride Flush 3 Ml Syringe) 3 ml IVFLUSH QSHIFT [facility] Last Admin: 04/10/22 07:54 Dose: 3 ml Documented By: CHRISTOPHER Trazodone HCl (Trazodone Hcl 100 Mg Tablet) 200 mg PO BEDTIME PRN PRN Reason: Sleep Last Admin: 04/07/22 22:24 Dose: 200 mg Documented By: MIGNON Labs CBC & Chem 7: 04/10/22 07:05 04/10/22 07:05 Labs: Laboratory Results - last 24 hr 04/10/22 04/10/22 07:05 07:05 MCV 82.3 MCH 25.0 L MCHC 30.4 L RDW 19.1 H Plt Count 247 MPV 9.5 Absolute Nucleated RBC 0.000 Nucleated RBC % (auto) 0.0 Anion Gap 15 Estim Creat Clear Calc 28.8 Estimated GFR 42 Random Glucose 116 H Calcium 8.8 D Assessment and Plan (1) Hx of CABG: Status: Acute (2) Angina pectoris: Status: Acute Plan This is an 86 yo F who presented to the ED with palpiations and chest tightness. 1. Persistent A.Fib with RVR Ventricular rate improved with IV Cardizem drip , will gradually wean IV Cardizem place patient on metoprolol XR 75 mg home dose Continue Eliquis Case discussed with Cardiology they recommend metoprolol XL 50 mg b.i.d. will adjust dose 2. Abnormal CT abdomen showing circumferential thickening of gastric antrum small-bowel GI series ordered but however patient was unable to finish study /therefore KUB obtained that showed persistent contrast within the hiatal hernia and gastric lumen as well as in small-bowel up to the level of transverse colon no significantly dilated loops of small bowel were noted Since patient has no nausea vomiting tolerating diet, inpatient endoscopy not recommended by Gastroenterology Recommend patient to take small frequent meals and continue PPI, will DC IV Protonix 3. Angina/CAD in the setting of known CAD (see cardiology notes for full details); has underlying CAD s/p CABG and subsequent occluded graft imdur inreased to 60 continue metoprolol, aspirin, patient reports intolerance to statin and has declined other forms of treatment 4. Chronic HFpEF not in exacerbation continue baseline diuretics 5. Mood continue her baseline meds 6. Back pain will place on K-pad, continue OxyContin 10 mg b.i.d. and as needed oxycodone and Tylenol Full Code DVT pptx, eliquis Reason for continued hospitalization: A. fib on IV Cardizem Quality Stroke Does the patient have a stroke diagnosis?: No VTE Prior VTE?: No VTE Risk Level:: Medical - moderate - high VTE Device Contraindication: Treatment Not Indicated VTE Drug Contraindication: N/A - Med Ordered
[2022-04-10] MEDS: traZODone HCL 100 MG TABLET 200 MG PO (20:57)
[2022-04-11] VITALS (7 sets, daily range): BP systolic 101–159; BP diastolic 51–72; PULSE 76–121; RESP 12–20; TEMP 36.1–36.9; O2SAT 97–98
[2022-04-11] MEDS: oxyCODONE HCl Immed Release 5 MG TABLET PO ×3 (01:13→17:35)
[2022-04-11] MEDS: Levothyroxine Sodium 125 MCG TABLET PO (05:58)
[2022-04-11] MEDS: Fluticasone/Vilanterol 200/25 BLST.W.DEV 1 PUFF INHALE (08:03)
[2022-04-11] MEDS: Isosorbide Mononitrate 60 MG TAB.ER.24H PO (10:14)
[2022-04-11] MEDS: Metoprolol Succinate ER 25 MG TAB.ER.24H 75 MG PO (10:14)
[2022-04-11] MEDS: Aspirin 81 MG TAB.CHEW PO (10:14)
[2022-04-11] MEDS: Furosemide 20 MG TABLET PO (10:15)
[2022-04-11] MEDS: oxyCODONE HCl ER 10 MG TAB.ER.12H PO ×2 (10:15→21:02)
[2022-04-11] MEDS: Apixaban 5 MG TABLET PO ×2 (10:15→21:02)
[2022-04-11] MEDS: Escitalopram Oxalate 20 MG TABLET PO (10:16)
[2022-04-11] MEDS: 0.9 % Sodium Chloride Flush 3 ML SYRINGE IVFLUSH ×3 (10:16→21:03)
[2022-04-11] MEDS: Calcitonin,Salmon,Synth Nasal 3.7 ML BOTTLE 1 SPRAY NOSTRILALT (10:17)
--- NOTE | 2022-04-11 15:56 | P.PNIM_ITS ---
Subjective Subjective Date of Service: 04/11/22 Interval History: Complaining of generalized pain mostly in coccyx, and lower extremities, denies chest pain, no palpitations, denies nausea, vomiting, abdominal pain, tolerating diet, no diarrhea, no acute issues overnight. 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 Neck supple no JVD. CVS? irregular rate rhythm, heart rate times to 130 with activity Respiratory lungs clear to auscultation, no respiratory distress, no wheeze, no rhonchi. Gastrointestinal abdomen soft, nontender, bowel sounds audible, no guarding , no rigidity. Extremities no edema. Neuro nonfocal ,moving all 4 extremity speech clear. Back exam, no tenderness on thoraco lumbar spine positive tenderness at coccyx Skin no rash Psych appropriate affect Objective Data Active Medications Acetaminophen (Acetaminophen 325 Mg Tablet) 650 mg PO Q6H PRN PRN Reason: Pain, Mild (Pain Scale 1-3) Last Admin: 04/09/22 11:57 Dose: 650 mg Documented By: NATHAN Albuterol Sulfate (Albuterol Sulfate 90 Mcg 8 Gm Inhaler) 2 puff INHALE Q6H PRN PRN Reason: Shortness Of Breath Albuterol/Ipratropium (Albuterol/Iprat 2.5/0.5mg 3 Ml Ampul.Neb) 3 ml INHALE RQ6H PRN PRN Reason: Shortness Of Breath Apixaban (Apixaban 5 Mg Tablet) 5 mg PO BID [facility] Last Admin: 04/11/22 10:15 Dose: 5 mg Documented By: CHRISTOPHER Artificial Tears (Artificial Tears 15 Ml Drops) 1 drop EYE-BOTH TID PRN PRN Reason: Dry Eyes Aspirin (Aspirin 81 Mg Tab.Chew) 81 mg PO DAILY [facility] Last Admin: 04/11/22 10:14 Dose: 81 mg Documented By: CHRISTOPHER Calcitonin [place] (Calcitonin,[place],Synth Nasal 3.7 Ml Bottle) 1 spray NOSTRILALT DAILY [facility] Last Admin: 04/11/22 10:17 Dose: 1 spray Documented By: CHRISTOPHER Escitalopram Oxalate (Escitalopram Oxalate 20 Mg Tablet) 20 mg PO DAILY [facility] Last Admin: 04/11/22 10:16 Dose: 20 mg Documented By: CHRISTOPHER Fluticasone Propionate (Fluticasone Propionate Nasal 16 G[address] [place]) 1 spray NOSTRIL-B DAILY PRN PRN Reason: Allergy Symptoms Fluticasone/Vilanterol (Fluticasone/Vilanterol 200/25 Blst.W.Dev) 1 puff INHALE DAILY [facility] Last Admin: 04/11/22 08:03 Dose: 1 puff Documented By: LOLY Furosemide (Furosemide 20 Mg Tablet) 20 mg PO DAILY [facility]; Protocol Last Admin: 04/11/22 10:15 Dose: 20 mg Documented By: CHRISTOPHER Isosorbide Mononitrate (Isosorbide Mononitrate 60 Mg Tab.Er.24h) 60 mg PO DAILY [facility]; Protocol Last Admin: 04/11/22 10:14 Dose: 60 mg Documented By: CHRISTOPHER Levothyroxine Sodium (Levothyroxine Sodium 125 Mcg Tablet) 125 mcg PO DAILY@0600 [facility] Last Admin: 04/11/22 05:58 Dose: 125 mcg Documented By: SELVIN Lorazepam (Lorazepam 0.5 Mg Tablet) 0.5 mg PO BID PRN PRN Reason: anxiety Last Admin: 04/10/22 13:12 Dose: 0.5 mg Documented By: CHRISTOPHER Melatonin (Melatonin 3 Mg Tablet) 6 mg PO BEDTIME PRN PRN Reason: Insomnia Metoprolol Succinate (Metoprolol Succinate Er 25 Mg Tab.Er.24h) 75 mg PO DAILY [facility]; Protocol Last Admin: 04/11/22 10:14 Dose: 75 mg Documented By: CHRISTOPHER Ondansetron HCl (Ondansetron Hcl 4 Mg/2 Ml Vial) 4 mg IVPUSH Q8H PRN PRN Reason: Nausea and Vomiting Oxycodone HCl (Oxycodone Hcl Immed Release 5 Mg Tablet) 5 mg PO QID PRN PRN Reason: Pain, Moderate Last Admin: 04/11/22 06:10 Dose: 5 mg Documented By: SELVIN Oxycodone HCl (Oxycodone Hcl Er 10 Mg Tab.Er.12h) 10 mg PO BID [facility] Last Admin: 04/11/22 10:15 Dose: 10 mg Documented By: CHRISTOPHER Senna (Senna [place] Extract Oral Syrup 15 Ml Syrup) 7.5 ml PO BEDTIME [facility] Last Admin: 04/10/22 20:54 Dose: 7.5 ml Documented By: SELVIN Sodium Chloride (0.9 % Sodium Chloride Flush 3 Ml Syringe) 3 ml IVFLUSH QSHIFT [facility] Last Admin: 04/11/22 10:16 Dose: 3 ml Documented By: CHRISTOPHER Trazodone HCl (Trazodone Hcl 100 Mg Tablet) 200 mg PO BEDTIME PRN PRN Reason: Sleep Last Admin: 04/10/22 20:57 Dose: 200 mg Documented By: SELVIN Labs CBC & Chem 7: 04/10/22 07:05 04/10/22 07:05 Assessment and Plan (1) Hx of CABG: Status: Acute (2) Angina pectoris: Status: Acute Plan This is an 86 yo F who presented to the ED with palpiations and chest tightness. 1. Persistent A.Fib with RVR Noted to have stable ventricular rate overnight this morning noted to have rapid ventricular rate up to 130s On metoprolol XR 75 mg will change to metoprolol XR 50 mg b.i.d. will add digoxin Continue Eliquis Case discussed with Cardiology 2. Abnormal CT abdomen showing circumferential thickening of gastric antrum small-bowel GI series ordered but however patient was unable to finish study /therefore KUB obtained that showed persistent contrast within the hiatal hernia and gastric lumen as well as in small-bowel up to the level of transverse colon no significantly dilated loops of small bowel were noted Since patient has no nausea, vomiting ,tolerating diet, inpatient endoscopy not recommended by Gastroenterology Recommend patient to take small frequent meals and continue po PPI, 3. Angina/CAD in the setting of known CAD (see cardiology notes for full details); has underlying CAD s/p CABG and subsequent occluded graft Continue Imdur continue metoprolol, aspirin, patient reports intolerance to statin and has declined other forms of treatment 4. Chronic HFpEF not in exacerbation continue baseline diuretics 5. Mood continue her baseline meds 6. Back pain continue OxyContin 10 mg b.i.d. and as needed oxycodone , continue K-pad, will add schedule Tylenol t.i.d. Full Code DVT pptx, eliquis Reason for continued hospitalization: A. fib with RVR Quality Stroke Does the patient have a stroke diagnosis?: No VTE Prior VTE?: No VTE Risk Level:: Medical - moderate - high VTE Device Contraindication: Treatment Not Indicated VTE Drug Contraindication: N/A - Med Ordered
[2022-04-11 17:21] LABS: Digoxin < 0.3 ng/mL (0.8-2.0)
[2022-04-11] MEDS: Acetaminophen 325 MG TABLET 650 MG PO ×2 (17:30→21:02)
[2022-04-11] MEDS: Digoxin 0.25 MG TABLET PO ×2 (17:31→21:37)
[2022-04-12 03:21] VITALS: BP 139/62; PULSE 79; RESP 18; TEMP 36.3; O2SAT 96
[2022-04-12] MEDS: Levothyroxine Sodium 125 MCG TABLET PO (05:50)
[2022-04-12] MEDS: oxyCODONE HCl Immed Release 5 MG TABLET PO ×2 (05:58→18:14)
[2022-04-12 07:40] VITALS: BP 138/71; PULSE 74; RESP 16; TEMP 36; O2SAT 98
[2022-04-12] MEDS: Fluticasone/Vilanterol 200/25 BLST.W.DEV 1 PUFF INHALE (07:58)
[2022-04-12 08:01] VITALS: PULSE 73; RESP 18; O2SAT 98
[2022-04-12] MEDS: Acetaminophen 325 MG TABLET 650 MG PO ×3 (08:15→21:29)
[2022-04-12] MEDS: oxyCODONE HCl ER 10 MG TAB.ER.12H PO ×2 (08:16→21:27)
[2022-04-12] MEDS: Metoprolol Succinate ER 25 MG TAB.ER.24H 75 MG PO (08:17)
[2022-04-12] MEDS: Apixaban 5 MG TABLET PO ×2 (08:17→21:27)
[2022-04-12] MEDS: Escitalopram Oxalate 20 MG TABLET PO (08:17)
[2022-04-12] MEDS: Furosemide 20 MG TABLET PO (08:17)
[2022-04-12] MEDS: Isosorbide Mononitrate 30 MG TAB.ER.24H PO (08:17)
[2022-04-12] MEDS: Aspirin 81 MG TAB.CHEW PO (08:17)
[2022-04-12] MEDS: Calcitonin,Salmon,Synth Nasal 3.7 ML BOTTLE 1 SPRAY NOSTRILALT (08:18)
[2022-04-12] MEDS: 0.9 % Sodium Chloride Flush 3 ML SYRINGE IVFLUSH ×2 (08:18→15:35)
[2022-04-12] MEDS: Digoxin 0.125 MG TABLET PO (09:54)
--- NOTE | 2022-04-12 12:14 | HO.PM.IMPN ---
Subjective Subjective Date of Service: 04/12/22 Interval History: Complaining of back pain, no worsening from baseline, complaining of constipation, no abdominal pain no nausea no vomiting tolerating diet denies chest pain, no palpitation ventricular rate improved with digoxin load, tele monitor with AFib with ventricular rate in 70s. 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 Neck supple no JVD. CVS? irregular rate rhythm Respiratory lungs clear to auscultation, no respiratory distress, no wheeze, no rhonchi. Gastrointestinal abdomen soft, nontender, bowel sounds audible, no guarding , no rigidity. Extremities no edema. Neuro nonfocal ,moving all 4 extremity speech clear. Back exam, no tenderness on thoraco lumbar spine positive tenderness at coccyx Skin no rash Psych appropriate affect Objective Data Active Medications Acetaminophen (Acetaminophen 325 Mg Tablet) 650 mg PO Q6H PRN PRN Reason: Pain, Mild (Pain Scale 1-3) Last Admin: 04/09/22 11:57 Dose: 650 mg Documented By: NATHAN Acetaminophen (Acetaminophen 325 Mg Tablet) 650 mg PO TID [facility] Last Admin: 04/12/22 08:15 Dose: 650 mg Documented By: YAJAIRA Albuterol Sulfate (Albuterol Sulfate 90 Mcg 8 Gm Inhaler) 2 puff INHALE Q6H PRN PRN Reason: Shortness Of Breath Albuterol/Ipratropium (Albuterol/Iprat 2.5/0.5mg 3 Ml Ampul.Neb) 3 ml INHALE RQ6H PRN PRN Reason: Shortness Of Breath Apixaban (Apixaban 5 Mg Tablet) 5 mg PO BID [facility] Last Admin: 04/12/22 08:17 Dose: 5 mg Documented By: YAJAIRA Artificial Tears (Artificial Tears 15 Ml Drops) 1 drop EYE-BOTH TID PRN PRN Reason: Dry Eyes Aspirin (Aspirin 81 Mg Tab.Chew) 81 mg PO DAILY [facility] Last Admin: 04/12/22 08:17 Dose: 81 mg Documented By: YAJAIRA Calcitonin [place] (Calcitonin,[place],Synth Nasal 3.7 Ml Bottle) 1 spray NOSTRILALT DAILY [facility] Last Admin: 04/12/22 08:18 Dose: 1 spray Documented By: YAJAIRA Digoxin (Digoxin 0.125 Mg Tablet) 0.125 mg PO DAILY [facility] Last Admin: 04/12/22 09:54 Dose: 0.125 mg Documented By: YAJAIRA Escitalopram Oxalate (Escitalopram Oxalate 20 Mg Tablet) 20 mg PO DAILY [facility] Last Admin: 04/12/22 08:17 Dose: 20 mg Documented By: YAJAIRA Fluticasone Propionate (Fluticasone Propionate Nasal 16 Gm [place]) 1 spray NOSTRIL-B DAILY PRN PRN Reason: Allergy Symptoms Fluticasone/Vilanterol (Fluticasone/Vilanterol 200/25 Blst.W.Dev) 1 puff INHALE DAILY [facility] Last Admin: 04/12/22 07:58 Dose: 1 puff Documented By: HERB Furosemide (Furosemide 20 Mg Tablet) 20 mg PO DAILY [facility]; Protocol Last Admin: 04/12/22 08:17 Dose: 20 mg Documented By: YAJAIRA Isosorbide Mononitrate (Isosorbide Mononitrate 30 Mg Tab.Er.24h) 30 mg PO DAILY [facility]; Protocol Last Admin: 04/12/22 08:17 Dose: 30 mg Documented By: YAJAIRA Levothyroxine Sodium (Levothyroxine Sodium 125 Mcg Tablet) 125 mcg PO DAILY@0600 [facility] Last Admin: 04/12/22 05:50 Dose: 125 mcg Documented By: ODRISMata Lorazepam (Lorazepam 0.5 Mg Tablet) 0.5 mg PO BID PRN PRN Reason: anxiety Last Admin: 04/10/22 13:12 Dose: 0.5 mg Documented By: CHRISTOPHER Melatonin (Melatonin 3 Mg Tablet) 6 mg PO BEDTIME PRN PRN Reason: Insomnia Metoprolol Succinate (Metoprolol Succinate Er 25 Mg Tab.Er.24h) 75 mg PO DAILY [facility]; Protocol Last Admin: 04/12/22 08:17 Dose: 75 mg Documented By: YAJAIRA Ondansetron HCl (Ondansetron Hcl 4 Mg/2 Ml Vial) 4 mg IVPUSH Q8H PRN PRN Reason: Nausea and Vomiting Oxycodone HCl (Oxycodone Hcl Immed Release 5 Mg Tablet) 5 mg PO QID PRN PRN Reason: Pain, Moderate Last Admin: 04/12/22 05:58 Dose: 5 mg Documented By: LARARISMata Oxycodone HCl (Oxycodone Hcl Er 10 Mg Tab.Er.12h) 10 mg PO BID [facility] Last Admin: 04/12/22 08:16 Dose: 10 mg Documented By: YAJAIRA Senna (Senna [place] Extract Oral Syrup 15 Ml Syrup) 7.5 ml PO BEDTIME [facility] Last Admin: 04/12/22 09:55 Dose: 7.5 ml Documented By: YAJAIRA Sodium Chloride (0.9 % Sodium Chloride Flush 3 Ml Syringe) 3 ml IVFLUSH QSHIFT [facility] Last Admin: 04/12/22 08:18 Dose: 3 ml Documented By: YAJAIRA Trazodone HCl (Trazodone Hcl 100 Mg Tablet) 200 mg PO BEDTIME PRN PRN Reason: Sleep Last Admin: 04/10/22 20:57 Dose: 200 mg Documented By: SELVIN Labs CBC & Chem 7: 04/10/22 07:05 04/10/22 07:05 Labs: Laboratory Results - last 24 hr 04/11/22 16:33 Digoxin < 0.3 L Assessment and Plan (1) Hx of CABG: Status: Acute (2) Angina pectoris: Status: Acute Plan This is an 86 yo F who presented to the ED with palpiations and chest tightness. 1.A.Fib with RVR Noted to have stable ventricular rate this morning after digoxin load On metoprolol XR 75 mg , will place on digoxin 0.125 mg daily, did not change dose of metoprolol to 50 b.i.d. due to soft blood pressures in evening Continue Eliquis 2. Abnormal CT abdomen showing circumferential thickening of gastric antrum small-bowel GI series ordered but however patient was unable to finish study /therefore KUB obtained that showed persistent contrast within the hiatal hernia and gastric lumen as well as in small-bowel up to the level of transverse colon no significantly dilated loops of small bowel were noted Since patient has no nausea, vomiting ,tolerating diet, inpatient endoscopy not recommended by Gastroenterology Recommend patient to take small frequent meals and continue po PPI, 3. Angina/CAD in the setting of known CAD (see cardiology notes for full details); has underlying CAD s/p CABG and subsequent occluded graft Continue Imdur continue metoprolol, aspirin, patient reports intolerance to statin and has declined other forms of treatment 4. Chronic HFpEF not in exacerbation continue baseline diuretics 5. Mood continue her baseline meds 6. Back pain continue OxyContin 10 mg b.i.d. and as needed oxycodone , continue K-pad, will add schedule Tylenol t.i.d. 7. Constipation will give senna and follow Full Code DVT pptx, eliquis Reason for continued hospitalization: A. fib with RVR needs to monitor times 24 hours for recurrent symptoms over Quality Stroke Does the patient have a stroke diagnosis?: No VTE Prior VTE?: No VTE Risk Level:: Medical - moderate - high VTE Device Contraindication: Treatment Not Indicated VTE Drug Contraindication: N/A - Med Ordered
[2022-04-12 15:11] VITALS: BP 128/53; PULSE 53; RESP 18; TEMP 36.1; O2SAT 97
[2022-04-12 19:10] VITALS: BP 121/66; PULSE 121; RESP 18; TEMP 36.6; O2SAT 93
[2022-04-12 23:50] VITALS: BP 143/90; PULSE 85; RESP 18; TEMP 36.2; O2SAT 98
[2022-04-13] VITALS (9 sets, daily range): BP systolic 108–134; BP diastolic 51–84; PULSE 65–117; RESP 16–18; TEMP 36.1–36.9; O2SAT 96–99
[2022-04-13] MEDS: Nitroglycerin 0.4 MG TAB.SUBL SUBLINGUAL (01:17)
[2022-04-13] MEDS: 0.9 % Sodium Chloride Flush 3 ML SYRINGE IVFLUSH ×4 (01:19→21:16)
[2022-04-13 01:47] LABS: Troponin-I High Sensitivity 15.2 ng/L (<3.5-17.0)
[2022-04-13] MEDS: Melatonin 3 MG TABLET 6 MG PO ×2 (01:51→21:18)
[2022-04-13] MEDS: Levothyroxine Sodium 125 MCG TABLET PO (05:30)
--- NOTE | 2022-04-13 05:43 | PC.NURSE ---
Patient had an episode of chest pain and phoned her son at approximately 2400, Dr was notified and ordered Nitroglycerin, patient HR 117 BP was 110/77 O2 Sat on 2L was 97%. Nitro taken with good effect. Gear Cutter notified and spoke to the son. o2 was increased to 4L NC and Sats increased to 86%. Patient awake most of the night Melatonin given with poor effect patient slept 1/2 hr. Most recent o2 sat taken at 0530 96%.
[2022-04-13] MEDS: Fluticasone/Vilanterol 200/25 BLST.W.DEV 1 PUFF INHALE (07:50)
[2022-04-13] MEDS: Isosorbide Mononitrate 30 MG TAB.ER.24H PO (08:45)
[2022-04-13] MEDS: Digoxin 0.125 MG TABLET PO (08:45)
[2022-04-13] MEDS: Furosemide 20 MG TABLET PO (08:45)
[2022-04-13] MEDS: Escitalopram Oxalate 20 MG TABLET PO (08:45)
[2022-04-13] MEDS: Metoprolol Succinate ER 50 MG TAB.ER.24H PO ×2 (08:45→21:16)
[2022-04-13] MEDS: oxyCODONE HCl ER 10 MG TAB.ER.12H PO ×2 (08:45→21:16)
[2022-04-13] MEDS: Apixaban 5 MG TABLET PO ×2 (08:45→21:16)
[2022-04-13] MEDS: Acetaminophen 325 MG TABLET 650 MG PO ×3 (08:46→21:16)
[2022-04-13] MEDS: Aspirin 81 MG TAB.CHEW PO (08:46)
[2022-04-13] MEDS: Calcitonin,Salmon,Synth Nasal 3.7 ML BOTTLE 1 SPRAY NOSTRILALT (08:50)
--- NOTE | 2022-04-13 10:36 | PC.NURSE ---
report received from overnight RN. Overnight pt required 4L NC to maintain sats. Titrated O2 down to 2L this morning, pt maintaining sat above 94%. Pt with c/o pain to her lower back and feeling nauseous. environmental control administrator per AUG. Camera in room, safety precautions taken, hourly rounding, call acuna within reach.
[2022-04-13] MEDS: ondansetron HCL 4 MG/2 ML VIAL IVPUSH (10:42)
--- NOTE | 2022-04-13 12:43 | P.PNIM_ITS ---
Subjective Subjective Date of Service: 04/13/22 Interval History: Complaining of nausea, upset stomach had a normal bowel movement last evening, no fevers no chills, no shortness of breath, no chest pain, no palpitations no worsening lower back discomfort. Review of Systems Review of Systems: Yes all other systems are reviewed and are negative Physical Exam Vital Signs: Vital Signs: Last Vital Signs Temp 97.8 F 04/13/22 11:42 Pulse 65 04/13/22 11:42 Resp 16 04/13/22 11:42 BP 134/60 04/13/22 11:42 Pulse Ox 97 04/13/22 11:42 O2 Del Method 04/13/22 11:42 O2 Flow Rate 2 04/13/22 11:42 BMI result Body Mass Index 26.1 Const: Other: General no acute distress resting comfortably, awake alert x3.? Neck supple no JVD. CVS? irregular rate rhythm Respiratory lungs clear to auscultation, no respiratory distress, no wheeze, no rhonchi. Gastrointestinal abdomen soft, epigastric tenderness, bowel sounds audible, no guarding , no rigidity. Extremities no edema. Neuro nonfocal ,moving all 4 extremity speech clear. Back exam, no tenderness on thoraco lumbar spine positive tenderness at coccyx Skin no rash Psych appropriate affect Objective Data Active Medications Acetaminophen (Acetaminophen 325 Mg Tablet) 650 mg PO Q6H PRN PRN Reason: Pain, Mild (Pain Scale 1-3) Last Admin: 04/09/22 11:57 Dose: 650 mg Documented By: NATHAN Acetaminophen (Acetaminophen 325 Mg Tablet) 650 mg PO TID [facility] Last Admin: 04/13/22 08:46 Dose: 650 mg Documented By: YAJAIRA Albuterol Sulfate (Albuterol Sulfate 90 Mcg 8 Gm Inhaler) 2 puff INHALE Q6H PRN PRN Reason: Shortness Of Breath Albuterol/Ipratropium (Albuterol/Iprat 2.5/0.5mg 3 Ml Ampul.Neb) 3 ml INHALE RQ6H PRN PRN Reason: Shortness Of Breath Apixaban (Apixaban 5 Mg Tablet) 5 mg PO BID [facility] Last Admin: 04/13/22 08:45 Dose: 5 mg Documented By: YAJAIRA Artificial Tears (Artificial Tears 15 Ml Drops) 1 drop EYE-BOTH TID PRN PRN Reason: Dry Eyes Aspirin (Aspirin 81 Mg Tab.Chew) 81 mg PO DAILY [facility] Last Admin: 04/13/22 08:46 Dose: 81 mg Documented By: YAJAIRA Calcitonin [place] (Calcitonin,[place],Synth Nasal 3.7 Ml Bottle) 1 spray NOSTRILALT DAILY [facility] Last Admin: 04/13/22 08:50 Dose: 1 spray Documented By: YAJAIRA Digoxin (Digoxin 0.125 Mg Tablet) 0.125 mg PO DAILY [facility] Last Admin: 04/13/22 08:45 Dose: 0.125 mg Documented By: YAJAIRA Escitalopram Oxalate (Escitalopram Oxalate 20 Mg Tablet) 20 mg PO DAILY [facility] Last Admin: 04/13/22 08:45 Dose: 20 mg Documented By: YAJAIRA Fluticasone Propionate (Fluticasone Propionate Nasal 16 Gm [place]) 1 spray NOSTRIL-B DAILY PRN PRN Reason: Allergy Symptoms Fluticasone/Vilanterol (Fluticasone/Vilanterol 200/25 Blst.W.Dev) 1 puff INHALE DAILY [facility] Last Admin: 04/13/22 07:50 Dose: 1 puff Documented By: KATIARICMayuri Furosemide (Furosemide 20 Mg Tablet) 20 mg PO DAILY [facility]; Protocol Last Admin: 04/13/22 08:45 Dose: 20 mg Documented By: YAJAIRA Isosorbide Mononitrate (Isosorbide Mononitrate 30 Mg Tab.Er.24h) 30 mg PO DAILY [facility]; Protocol Last Admin: 04/13/22 08:45 Dose: 30 mg Documented By: YAJAIRA Levothyroxine Sodium (Levothyroxine Sodium 125 Mcg Tablet) 125 mcg PO DAILY@0600 [facility] Last Admin: 04/13/22 05:30 Dose: 125 mcg Documented By: FELIPE Melatonin (Melatonin 3 Mg Tablet) 6 mg PO BEDTIME PRN PRN Reason: Insomnia Last Admin: 04/13/22 01:51 Dose: 6 mg Documented By: FELIPE Metoprolol Succinate (Metoprolol Succinate Er 50 Mg Tab.Er.24h) 50 mg PO BID [facility]; Protocol Last Admin: 04/13/22 08:45 Dose: 50 mg Documented By: YAJAIRA Nitroglycerin (Nitroglycerin 0.4 Mg Tab.Subl) 0.4 mg SUBLINGUAL Q5MX3 PRN PRN Reason: chest pain Last Admin: 04/13/22 01:17 Dose: 0.4 unit Documented By: FELIPE Ondansetron HCl (Ondansetron Hcl 4 Mg/2 Ml Vial) 4 mg IVPUSH Q8H PRN PRN Reason: Nausea and Vomiting Last Admin: 04/13/22 10:42 Dose: 4 mg Documented By: YAJAIRA Oxycodone HCl (Oxycodone Hcl Er 10 Mg Tab.Er.12h) 10 mg PO BID [facility] Last Admin: 04/13/22 08:45 Dose: 10 mg Documented By: YAJAIRA Senna (Senna [place] Extract Oral Syrup 15 Ml Syrup) 7.5 ml PO BEDTIME [facility] Last Admin: 04/12/22 21:25 Dose: 7.5 ml Documented By: FELIPE Sodium Chloride (0.9 % Sodium Chloride Flush 3 Ml Syringe) 3 ml IVFLUSH QSHIFT [facility] Last Admin: 04/13/22 08:51 Dose: 3 ml Documented By: YAJAIRA Trazodone HCl (Trazodone Hcl 100 Mg Tablet) 200 mg PO BEDTIME PRN PRN Reason: Sleep Last Admin: 04/10/22 20:57 Dose: 200 mg Documented By: SELVIN Labs CBC & Chem 7: 04/10/22 07:05 04/10/22 07:05 Labs: Laboratory Results - last 24 hr 04/13/22 01:14 Troponin I High Sens 15.2 D Assessment and Plan (1) Hx of CABG: Status: Acute (2) Angina pectoris: Status: Acute Plan This is an 86 yo F who presented to the ED with palpiations and chest tightness. 1.A.Fib with RVR Noted to have stable ventricular rate, except for couple episodes On metoprolol XR 75 mg , will place on digoxin 0.125 mg daily, and change metoprolol to 50 b.i.d. Continue Eliquis 2. Abnormal CT abdomen showing circumferential thickening of gastric antrum small-bowel GI series ordered but however patient was unable to finish study /therefore KUB obtained that showed persistent contrast within the hiatal hernia and gastric lumen as well as in small-bowel up to the level of transverse colon no significantly dilated loops of small bowel were noted Since patient has no nausea, vomiting ,tolerating diet, had mild abdominal discomfort with breakfast this morning recommended small frequent meals Continue PPI Seen by Gastroenterology no inpatient workup indicated 3. Angina/CAD hx of known CAD (see cardiology notes for full details); has underlying CAD s/p CABG and subsequent occluded graft Continue Imdur continue metoprolol, aspirin, patient reports intolerance to statin and has declined other forms of treatment 4. Chronic HFpEF not in exacerbation continue baseline diuretics 5. Mood continue her baseline meds 6. Back pain continue OxyContin 10 mg b.i.d. and as needed oxycodone , continue K-pad, and Tylenol t.i.d. 7. Constipation resolved continue schedule senna will add stool softener for Full Code DVT pptx, eliquis Reason for continued hospitalization: A. fib with RVR needs to monitor times 24 hours for recurrent symptoms over Quality Stroke Does the patient have a stroke diagnosis?: No VTE Prior VTE?: No VTE Risk Level:: Medical - moderate - high VTE Device Contraindication: Treatment Not Indicated VTE Drug Contraindication: N/A - Med Ordered
[2022-04-13 17:58] LABS: COVID-19 Test Negative (Negative); IDNOW Serial# 16C4AD1C
[2022-04-13] MEDS: LORazepam 0.5 MG TABLET PO (22:09)
[2022-04-14 03:48] VITALS: BP 113/53; PULSE 73; RESP 18; TEMP 36.3; O2SAT 98
[2022-04-14] MEDS: Levothyroxine Sodium 125 MCG TABLET PO (06:39)
[2022-04-14] MEDS: Fluticasone/Vilanterol 200/25 BLST.W.DEV 1 PUFF INHALE (07:33)
[2022-04-14 07:35] VITALS: PULSE 87; RESP 18; O2SAT 98
[2022-04-14 08:00] VITALS: BP 135/59; PULSE 66; RESP 20; TEMP 36.3; O2SAT 99
[2022-04-14] MEDS: Escitalopram Oxalate 20 MG TABLET PO (10:10)
[2022-04-14] MEDS: Aspirin 81 MG TAB.CHEW PO (10:11)
[2022-04-14] MEDS: Docusate Sodium 100 MG CAPSULE PO (10:11)
[2022-04-14] MEDS: Digoxin 0.125 MG TABLET PO (10:11)
[2022-04-14] MEDS: oxyCODONE HCl ER 10 MG TAB.ER.12H PO (10:11)
[2022-04-14] MEDS: Apixaban 5 MG TABLET PO (10:11)
[2022-04-14] MEDS: Isosorbide Mononitrate 30 MG TAB.ER.24H PO (10:12)
[2022-04-14] MEDS: Metoprolol Succinate ER 50 MG TAB.ER.24H PO (10:12)
[2022-04-14] MEDS: Acetaminophen 325 MG TABLET 650 MG PO (10:13)
[2022-04-14] MEDS: Furosemide 20 MG TABLET PO (10:15)
[2022-04-14 10:16] VITALS: BP 135/59; PULSE 66; O2SAT 99
[2022-04-14] MEDS: Calcitonin,Salmon,Synth Nasal 3.7 ML BOTTLE 1 SPRAY NOSTRILALT (10:20)
[2022-04-14] MEDS: 0.9 % Sodium Chloride Flush 3 ML SYRINGE IVFLUSH (10:21)
--- NOTE | 2022-04-14 10:25 | P.DS_ITS ---
DS: Providers Provider Date of Service: 04/14/22 Date of admission: 04/07/22 20:44 Primary care physician: Sofya Bonner MD Consults: 04/07/22 20:48 Consult to Cardiology Routine Consulting Provider: Skip Gaitan Reason for consultation: afib Has provider been notified: No 04/07/22 20:49 Consult to Gastroenterology Routine Consulting Provider: Abdi Ortiz Reason for consultation: gastric antrum ?mass Has provider been notified: No DS: Diagnosis Discharge Diagnosis (1) Hx of CABG: Status: Acute (2) Angina pectoris: Status: Acute DS: Summary Hospital Course Hospital Course: To to history of presenting illness Date of Service: 04/07/22 Chief Complaint: Chest palpitations This is a 86-year-old female, resident of [facility], with pertinent history of mood disorder, hypothyroidism, essential hypertension, chronic hypoxemic respiratory failure due to COPD, CAD status post bypass, congestive heart failure (unknown ejection fraction) who was brought to the emergency department for evaluation of palpitations and chest tightness.? Patient does have multiple complaints at the time of admission.? States she has been having palpitations and chest tightness that started on the day of presentation.? She was evaluated by a healthcare provider at the [facility] who sent her to the ER.? Patient does not know if she has history of atrial arrhythmia.? Patient also complains of low back pain since yesterday.? She was in her wheelchair when she slid out of her wheelchair and landed on her coccyx bone and it has been hurting since.? On review of systems, she complains of epigastric discomfort, nausea and difficulty with passing stools.? Does not remember the last time she had a bowel movement.? Patient denies fever, chills, vomiting, chest discomfort, changes in urinary habits, breathing difficulty.? 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 In the emergency department, patient was given IV digoxin and initiated on diltiazem drip. Will Hospital course of 86 yo F who presented to the ED with palpiations and chest tightness. 1.A.Fib with RVR patient admitted to medical floor initially treated with IV Cardizem drip and dose of metoprolol increased to 50 mg b.i.d. subsequently digoxin was added currently ventricular rate is stable, with good blood pressure control she has been recommended to continue Eliquis 2. Abnormal CT abdomen showing circumferential thickening of gastric antrum, small-bowel GI series ordered, however patient was unable to finish study /therefore KUB obtained that showed persistent contrast within the hiatal hernia and gastric lumen as well as in small-bowel up to the level of transverse colon no significantly dilated loops of small bowel were noted, Since patient has no nausea, vomiting ,tolerating diet, no further intervention recommended by document manager, she has been recommended to take small frequent meals and to remain in sitting position 45 minutes after meals due to hiatal hernia. 3. Angina/CAD Chest tightness likely due to atrial fibrillation with RVR troponin remained flat seen by Cardiology patient not diagnosed with acute coronary syndrome, dose of metoprolol increased to 50 mg b.i.d., continue aspirin and Isordil Patient reports intolerance to statins and has declined other forms of treatment hx of known CAD s/p CABG and subsequent occluded graft. 4. Chronic HFpEF no acute exacerbation noted continue baseline diuretics 5. Mood continue as needed Ativan and trazodone 6. Back pain? continue OxyContin ,as needed oxycodone , continue K-pad, and Tylenol t.i.d. 1 week and then as needed 2 7. Constipation resolved continue schedule senna Time Spent with Patient Time attestation: Total time spent providing and/or coordinating discharge services: Discharge coordination time: Greater than 30 minutes Quality: Safe Use of Opioids Does Pt have an Active Cancer Diagnosis on the Problem List?: No Quality: Stroke Does the patient have a stroke diagnosis?: No Physical Exam Vital Signs: Vital Signs: Last Vital Signs Temp 97.4 F 04/14/22 08:00 Pulse 66 04/14/22 10:16 Resp 20 04/14/22 08:00 BP 135/59 L 04/14/22 10:16 Pulse Ox 99 04/14/22 10:16 O2 Del Method 04/14/22 08:00 O2 Flow Rate 2 04/14/22 08:00 BMI result Body Mass Index 26.1 Const: Other: General no acute d istress resting co mfortably, awake a lert x3.? Neck sup ple no JVD. CVS? i rregular rate rhyt hm Respiratory armand gs clear to auscul tation, no respira tory distress, no wheeze, no rhonchi . Gastrointestinal abdomen soft, epi gastric tenderness , bowel sounds aud ible, no guarding , no rigidity. Ext remities no edema. Neuro nonfocal ,m oving all 4 extrem ity speech clear. Back exam, no tend erness on thoraco lumbar spine posit shawn tenderness at coccyx Skin no festus h Psych appropriat e affect DS: Data Data Completed and Pending Labs on day of discharge: Laboratory Results - last 24 hr 04/13/22 Unknown COVID-19 ([facility]) Negative COVID-19 Clin Com See Note Discharge Plan Discharge Anticipated Discharge Date/Time: 04/14/22 10:08 Patient Disposition: Xfer LTC Discharge Diagnosis: Atrial fibrillation with RVR Angina/coronary artery disease Lower back pain lower back Referrals: Sofya Bonner MD [Primary Care Provider] - 1 Week Discharge Medications: New metoprolol succinate 50 mg Tablet Extended Release 24 Hr 50 mg PO BID Qty: 60 0RF Protocol: Hold for SBP/HR < HOLD for SBP < : 90 HOLD for HR < : 60 digoxin 125 mcg (0.125 mg) Tablet 0.125 mg PO DAILY Qty: 30 0RF nystatin 100,000 unit/gram Powder 1 appl topical BID Qty: 30 0RF Protocol: Apply to: Apply to: under breast acetaminophen 325 mg Tablet 650 mg PO TID Qty: 21 0RF Rx Instructions: take Tylenol as 650 mg 3 times a day for 1 week and then as needed Continued ipratropium-albuterol 0.5 mg-3 mg(2.5 mg base)/3 mL solution for nebulization 3 ml inhalation Q6H PRN (Reason: Shortness Of Breath) isosorbide mononitrate 30 mg tablet extended release 24 hr 30 mg PO DAILY omeprazole 40 mg capsule,delayed release(DR/EC) 1 cap PO DAILY lorazepam 0.5 mg tablet 1 tab PO DAILY PRN (Reason: anxiety) trazodone 100 mg tablet 2 tab PO BEDTIME PRN (Reason: Sleep) calcitonin ([place]) 200 unit/actuation spray,non-aerosol 1 spray intranasal (ALT) DAILY levothyroxine 125 mcg tablet 1 tab PO DAILY furosemide 20 mg tablet 1 tab PO DAILY albuterol sulfate 90 mcg/actuation HFA aerosol inhaler 2 puff inhalation Q6H PRN (Reason: Shortness Of Breath) oxycodone 5 mg tablet 1 tab PO QID PRN (Reason: Pain, Moderate) escitalopram oxalate 20 mg tablet 20 mg PO DAILY Advair HFA 230-21 mcg/actuation HFA aerosol inhaler 2 puff inhalation BID diclofenac sodium 1 % gel 2 g topical BID Eliquis 5 mg tablet 5 mg PO BID oxycodone [OxyContin] 15 mg tablet,oral only,ext.rel.12 hr 15 mg PO BEDTIME sennosides [senna] 8.6 mg Tablet 17.2 mg PO BID lidocaine 4 % Adhesive Patch,Medicated 1 patch TOPICAL DAILY PRN (Reason: Pain) cetirizine 5 mg Tablet 5 mg PO DAILY guaifenesin 100 mg/5 mL Liquid 200 mg PO Q4H PRN (Reason: Cough) carboxymethylcellulose sodium [Refresh Tears] 0.5 % Drops 1 drp OPHTHALMIC (EYE) TID PRN (Reason: Dry Eye(S)) benzonatate 100 mg Capsule 100 mg PO TID PRN (Reason: Cough) ferrous sulfate 325 mg (65 mg iron) Tablet 325 mg PO DAILY aspirin 81 mg Tablet,Chewable 81 mg PO DAILY ondansetron 4 mg Tablet,Disintegrating 4 mg PO Q8H PRN (Reason: Nausea And Vomiting) fluticasone propionate 50 mcg/actuation spray,suspension 1 spray intranasal DAILY PRN (Reason: Allergy Symptoms) ketorolac 0.4 % drops 1 drp ophthalmic (eye) TID PRN (Reason: Allergy Symptoms) calcium carbonate-vitamin D3 [Calcium 600 + D(3)] 600 mg-10 mcg (400 unit) Tablet 1 tab PO DAILY Discontinued amlodipine 2.5 mg tablet 1 tab PO DAILY metoprolol succinate 25 mg tablet extended release 24 hr 75 mg PO DAILY Discharge Orders: Discharge Order (Routine); Ordered 04/14/22 Ordered By: Sandy Olivares Diet: Low fat, low cholesterol Activity on Discharge: As tolerated Stand Alone Forms: Patient Portal Discharge page Care Plan Goals: Chest tightness resolved treatment of atrial fibrillation with rapid ventricular response dose of metoprolol increased to 50 mg b.i.d., patient started on digoxin Continue pain medication use scheduled Tylenol for 1 more week No acute coronary syndrome diagnosed Noted to have Hannah rash underneath breast use nystatin powder twice daily until rash resolves Check digoxin level in 1 week Health Concerns: Continue all home medications as previously prescribed Plan of Treatment: Outpatient follow-up with primary care physician Assessment: As above
[2022-04-14 11:15] VITALS: BP 135/62; PULSE 59; RESP 20; TEMP 36.4; O2SAT 100
[2022-04-14 15:50] VITALS: BP 142/63; PULSE 58; RESP 19; TEMP 37.1
== END 2022-04-14 16:54 | DRG 309 ==
LOC: HO.ED 18:01 → HO.EDOVER 20:57 → HO.IMC 04-08 08:44
PROVIDERS: Family Medicine; Physician Assistant Medical; Admitting Provider Student in an Organized Health Care Education/Training Program; Emergency Provider Emergency Medicine; PCP Internal Medicine; Visit Provider Hospitalist
DX: I48.19 Other persistent atrial fibrillation (principal); I50.32 Chronic diastolic (congestive) heart failure; J96.11 Chronic respiratory failure with hypoxia; K21.9 Gastro-esophageal reflux disease without esophagitis; I11.0 Hypertensive heart disease with heart failure; J44.9 Chronic obstructive pulmonary disease, unspecified; I95.9 Hypotension, unspecified; E03.9 Hypothyroidism, unspecified; F39 Unspecified mood [affective] disorder; I25.119 Atherosclerotic heart disease of native coronary artery with unspecified angina pectoris; D50.9 Iron deficiency anemia, unspecified; F41.9 Anxiety disorder, unspecified; G47.00 Insomnia, unspecified; K44.9 Diaphragmatic hernia without obstruction or gangrene; Z95.1 Presence of aortocoronary bypass graft; Z99.81 Dependence on supplemental oxygen; Z20.822 Contact with and (suspected) exposure to COVID-19; Z87.440 Personal history of urinary (tract) infections; Z86.73 Personal history of transient ischemic attack (TIA), and cerebral infarction without residual deficits; Z79.01 Long term (current) use of anticoagulants; Z79.82 Long term (current) use of aspirin; Z79.899 Other long term (current) drug therapy
CPT/HCPCS: 36415; 71046; 72100; 72220; 74018; 74177; 74240; 80048; 80053; 80162; 81001; 82550; 83540; 83735; 83880; 84443; 84484; 85025; 85027; 85610; 87635; 93005; 93306; 94640; 97162; 97166; 97530; 97535; 99285; J0610; J1160; J2405; Q9967